=== PATIENT | female | born 1990 | race Caucasian/White ===

== ENCOUNTER → 2020-02-21 08:06 | Outpatient (BNVA) | payer OTHER, SELFPAY | PROVIDERS: PCP Pediatrics; Visit Provider Surgery | DX: Z76.89 Persons encountering health services in other specified circumstances (principal) ==

== ENCOUNTER 2023-06-22 12:21 | Emergency (ER) | payer OTHER, SELFPAY ==
--- NOTE | ~2023-06-22 | CT_ITS ---
EXAMINATION: CT head/brain wo IV con CLINICAL INFORMATION: Reason for Exam hypertension and headache COMPARISON: None. TECHNIQUE: Contiguous axial imaging was performed from the skull base to vertex without intravenous contrast. Sagittal and coronal reformatted images were obtained. This CT examination was performed using dose optimization techniques as appropriate, variously including the following: * Automated exposure control * Adjustment of mA and/or kV according to patient size (this includes techniques or standardized protocols for targeted exams where dose is matched to indication/reason for exam; i.e. extremities or head) Use of iterative reconstruction technique DLP: 699 mGy-cm FINDINGS: There is no evidence of acute intracranial hemorrhage. No mass-effect or ventricular shift is noted. No acute, territorial loss of allan-white differentiation. The ventricles and sulci are appropriate in size and configuration for the patient's stated age. No depressed calvarial fracture. The paranasal sinuses are well-aerated. The mastoid air cells are clear. CT/CT head/brain wo IV con IMPRESSION: No acute intracranial hemorrhage, mass effect, or midline shift.
[2023-06-22 13:14] VITALS: BP 162/114; PULSE 89; RESP 18; TEMP 36.9; O2SAT 99; BMI 54.9
--- NOTE | 2023-06-22 13:15 | ED_ITS ---
HPI - General Adult General Chief complaint: General Medical Stated complaint: high bp per weight management dr Time Seen by Provider: 06/22/23 15:20 Source: patient Mode of arrival: ambulatory Limitations: no limitations History of Present Illness HPI narrative: a 32-year-old female was referred from weight management clinic for elevated diastolic blood pressure. Patient with history of preeclampsia and gestational hypertension that was placed on antihypertension medication by her OBGYN the patient used for 2 minutes then ran out of the medication since she did not have a PCP, patient has blood pressure monitor at home that has been recording high blood pressure for the past few months, currently not on any antihypertensive medication, complains of intermittent headache for the past month, right arm tingling, intermittent chest tightness, in the ED patient reports no symptoms. Patient has first-time appointment with her PCP tomorrow. Related Data Previous Rx's ?Medication ?Instructions ?Recorded amlodipine 2.5 mg tablet 2.5 mg PO DAILY #10 tabs 06/22/23 Allergies Allergy/AdvReac Type Severity Reaction Status Date / Time No Known Allergies Allergy Verified 06/22/23 13:14 Review of Systems 2 Review of Systems: all other systems are reviewed and are negative Constitutional: Reports as per HPI and Reports no additional constitutional complaints Eyes: Reports as per HPI and Reports no additional eye complaints Reports system reviewed and no additional complaints, except as documented Cardiovascular: Reports as per HPI and Reports no additional cardiovascular complaints Respiratory: Reports as per HPI and Reports no additional respiratory complaints Gastrointestinal: Reports as per HPI and Reports no additional gastrointestinal complaints Genitourinary: Reports no additional female genitourinary complaints Musculoskeletal: Reports no additional musculoskeletal complaints Skin/Breast: Reports system reviewed and no additional complaints, except as docu Psychiatric: Reports no additional psychiatric complaints Endocrine: Reports no additional endocrine complaints Hematologic/Lymphatic: Reports no additional hematologic/lymphatic complaints Allergic/Immunologic: Reports no additional allergic/immunologic complaints Reports system reviewed and no additional complaints, except as documented and Reports Abnormal speech present PMFSH Social History Social History Advance Directives: No Advance Directives Information Provided: No Physical Exam ED Vital Signs: Vital Signs - 24 hr 06/22/23 13:14 06/22/23 15:35 Temperature 98.4 F 98.1 F Pulse Rate 89 77 Respiratory Rate 18 16 Blood Pressure 162/114 H 143/96 H Pulse Oximetry 99 98 Oxygen Delivery Method Room Air Room Air BMI result Body Mass Index 54.9 Vital signs have been reviewed and appear to be correct. Blood pressure elevated. Heart rate normal. Respiratory rate normal. Temperature normal. Oxygen saturation normal. Appearance: Alert. Oriented X3. No acute distress. Head: Normal external exam. Normocephalic. Atraumatic. No Farias signs noted. No raccoon eyes noted Eyes: PERRLA. EOMI. Conjunctiva and sclera normal. Eyelids normal. ENT: TM's Normal. Pharynx normal. Uvula midline. Moist mucous membranes. No trismus noted. No drooling noted. No muffled voice noted. Neck: Normal inspection. Neck supple. FROM. No adenopathy. Thyroid Normal. No meningeal signs. No neck mass noted. CVS: Normal heart rate and rhythm. Heart sound normal. No murmurs noted. Pulses normal throughout. Respiratory: No respiratory distress. Painless inspiration. Breath sounds normal. No wheezes/rales/rhonchi noted. Chest nontender. No accessory muscle usage noted or decreased air movement noted. Abdomen: Soft and nontender. Bowel sounds normal in all 4 quadrants. No distention noted. No organomegaly noted. No visible injury noted. Back: No CVA tenderness. Full range of motion noted. Skin: Skin warm and dry. Normal skin color. Normal skin turgor. No rashes/lesions/lacerations noted. Extremities: No lower extremity edema. Extremities exhibit normal range of motion. Extremities nontender. Neuro: Oriented X 3. Cranial nerve exam: II-XII are grossly intact No motor deficit. No sensory deficit. Reflexes normal. Course Course Course Narrative: RME- 32-year-old female presents for evaluation of high blood pressure from her weight management office. She endorses headache right arm tingling and chest tightness breath. On arrival to the ED her blood pressure is 162/114 in triage. Plan for labs, EKG Reevaluation(s) Reevaluation #1: 32-year-old female with diagnosed gestational hypertension with preeclampsia, patient also was recording high blood pressure at home with intermittent symptoms for high blood pressure, will have her 1st appointment with PCP tomorrow, discussed with the patient that will start on amlodipine 2.5 mg daily, to keep her appointment with PCP tomorrow. Time: 17:00 Medications Administered Discontinued Medications Generic Name Dose Route Start Last Admin Trade Name Opal PRN Reason Stop Dose Admin Amlodipine Besylate 2.5 mg 06/22/23 15:38 06/22/23 16:22 Amlodipine Besylate 2.5 Mg Tablet PO 06/22/23 15:39 2.5 mg ONCE ONE Administration Protocol Medical Decision Making Differential Diagnosis Differential Diagnoses: The differential diagnosis associated with the presentation includes ( Hypertensive urgency, hypertensive emergency, intracranial bleed, LV hypertrophy, ACS, electrolyte derangement, severe anemia.) Admission/Observation Consideration of admission/observation: Escalation of care including admission/observation considered Lab Data MDM Lab Attestation statement: I reviewed the patient's lab results. 06/22/23 14:35 06/22/23 14:35 Labs: Lab Results 06/22/23 Range/Units 14:35 WBC 8.1 (4.8-10.8) X10*3/uL RBC 5.40 (4.20-5.50) X10*6/uL Hgb 14.9 (12.0-16.0) g/dl Hct 44.7 (37.0-47.0) % MCV 82.8 (80.0-98.0) fL MCH 27.6 (27.0-33.0) pg MCHC 33.3 (31.0-35.0) g/dl RDW 13.1 (11.0-16.0) % Plt Count 326 (160-400) X10*3/uL MPV 9.2 L (9.4-12.3) fL Immature Gran % (Auto) 0.2 (0.0-0.4) % Neut % (Auto) 63.2 (45-73) % Lymph % (Auto) 29.2 (20-40) % Edgar % (Auto) 5.9 (2-11) % Eos % (Auto) 1.1 (0-4) % Baso % (Auto) 0.4 (0-2) % Lymph # (Auto) 2.4 (1.2-4.9) X10*3/uL Edgar # (Auto) 0.5 (0.1-1.2) X10*3/uL Eos # (Auto) 0.1 (0.0-0.4) X10*3/uL Baso # (Auto) 0.0 (0.0-0.2) X10*3/uL Abs Immat Gran (auto) 0.02 (0.00-0.03) X10*3/uL Absolute Neuts (auto) 5.1 (2.0-8.3) x10*3/uL Absolute Nucleated RBC 0.000 (0.0-0.012) X10*3/uL Nucleated RBC % (auto) 0.0 (0.0-0.2) /100WBC Sodium 140 (135-145) mmol/L Potassium 4.2 (3.3-5.1) mmol/L Chloride 108 (96-108) mmol/L Carbon Dioxide 23 (22-29) mmol/L Anion Gap 13 (12-20) BUN 9 (9-16) mg/dL Creatinine 0.70 (0.5-1.4) mg/dL Estim Creat Clear Calc 138.4 Estimated GFR > 60 Random Glucose 90 (60-115) mg/dL Calcium 9.7 (8.4-10.2) mg/dL Troponin I High Sens < 2.7 (<3.5-17.0) ng/L Independent Interpretation I performed an independent interpretation of an: EKG ( Normal sinus rhythm at 84 beats per minutes with sinus arrhythmia, diffuse T-wave inversion, normal intervals.) and CT Scan ( Head: No acute intra cranial pathology.) Radiology Impression Discussion of test interpretation with radiology: I have reviewed the radiologist's reading. (No acute intracranial hemorrhage, mass effect, or midline shift.) Chronic Conditions Patient?s care impacted by: Hypertension Discharge Plan Discharge Clinical Impression: Essential hypertension Patient Disposition: Home, Self-Care Instructions: Hypertension (ED) Additional Instructions: keep your appointment with PCP tomorrow. Keep monitoring and records for your blood pressure home and review with with your primary doctor. Seek immediate medical attention for severe headache, blurry vision, chest pain, shortness of breath, weakness. Prescriptions: New amlodipine 2.5 mg tablet 2.5 mg PO DAILY Qty: 10 0RF Print Language: Luxembourger
--- NOTE | 2023-06-22 13:16 | ECG_ITS ---
Test Reason : HTN Blood Pressure : / mmHG Vent. Rate : 084 BPM Atrial Rate : 084 BPM P-R Int : 126 ms QRS Dur : 086 ms QT Int : 370 ms P-R-T Axes : 050 -22 003 degrees QTc Int : 437 ms Normal sinus rhythm with sinus arrhythmia T wave abnormality, consider anterior ischemia Abnormal ECG No previous ECGs available Referred By: Chava Ross Electronically Signed By:BRITNI BARKER
--- OUTSIDE RECORDS SUMMARY | 2023-06-22 13:51 | XMS_ITS | Continuity of Care Document ---
Author Organization [facility] Pako Gutierres n's [facility] Address [address], [address] [place] [address]- Care Team Providers Care Special Investigator Name Role Phone Not on Staff, PCP Primary Care Physician Unavail able Encounter [facility] Date(s): 06/18/22 - 08/07/22 [facility] Pako Dangs [facility] [address] [place] [address]- Attending Physician: Sherry Quinones MD Referring Physician: Clarissa Wills CNM Allergies, Adverse Reactions, Alerts Substance Reaction Severity Status Other Environmental Allergy 1 Active 1seasonal allergies Immunizations Given and Recorded Vaccine Date Status Refusal Reason tetanus/diphtheria/pertussis, acel(Tdap) 05/13/22 Given tetanus/diphtheria/pertussis, acel(Tdap) 12/15/18 Given tetanus/diphtheria/pertussis, acel(Tdap) 06/02/13 Given influenza virus vaccine, inactivated 12/12/21 Oliver rded influenza virus vaccine, inactivated 05/21/21 Oliver rded influenza virus vaccine, inactivated 12/24/20 Oliver rded influenza virus vaccine, inactivated 1 12/13/19 Re corded influenza virus vaccine, inactivated 12/01/18 Give n influenza virus vaccine, inactivated 06/02/13 Give n influenza virus vaccine, inactivated 12/09/10 Give n influenza virus vaccine, inactivated 12/26/09 Give n influenza virus vaccine, inactivated 03/16/07 Give n SARS-CoV-2 mRNA ([id number]) vax 07/02/21 Recorded SARS-CoV-2 mRNA ([id number]) vax 04/29/21 Recorded Meningococcal Polysaccharide Vaccine 09/07/12 Give n influ virus vac, H1N1, live(oldterm) 2 02/07/09 Gi oralia Influenza Inactive (IM) (oldterm) 3 11/21/08 Given Human Papillomavirus Vaccine 4 11/21/08 Given Human Papillomavirus Vaccine 09/01/08 Given Human Papillomavirus Vaccine 08/10/07 Given Tet/Diphth/Acel, Pertussis (oldterm) 08/10/07 Give n Varicella Virus Vaccine 08/10/07 Given Varicella Virus Vaccine 5 04/07/98 Given Meningococcal Conjugate Vaccine 08/10/07 Given tetanus-diphtheria toxoids (Td) 6 01/27/01 Given Hepatitis B Vaccine (old term) 7 04/07/98 Given Hepatitis B Vaccine (old term) 8 09/06/95 Given Hepatitis B Vaccine (old term) 9 05/06/95 Given Poliovirus Vaccine, Inactivated 10 11/06/95 Given Poliovirus Vaccine, Inactivated 11 04/07/93 Given Poliovirus Vaccine, Inactivated 12 06/05/92 Given Poliovirus Vaccine, Inactivated 13 03/07/92 Given Diphth/Pertussis, Whl Cell/Tet(oldterm) 14 11/06/95 Given Diphth/Pertussis, Whl Cell/Tet(oldterm) 15 06/05/93 Given Diphth/Pertussis, Whl Cell/Tet(oldterm) 16 08/05/92 Given Diphth/Pertussis, Whl Cell/Tet(oldterm) 17 06/05/92 Given Diphth/Pertussis, Whl Cell/Tet(oldterm) 18 03/07/92 Given Measles/Mumps/Rubella Virus Vaccine 19 06/05/93 Gi oralia Measles/Mumps/Rubella Virus Vaccine 20 03/07/93 Gi oralia Haemophilus B Conj Vaccine (oldterm) 21 04/07/93 G iven Haemophilus B Conj Vaccine (oldterm) 22 08/05/92 G iven Haemophilus B Conj Vaccine (oldterm) 23 06/05/92 G iven Haemophilus B Conj Vaccine (oldterm) 24 03/07/92 G iven 1Result Comment: received at [facility] on [facility] 2Admin Note: VIS GIVEN 3Admin Note: VIS GIVEN 4Admin Note: VIS GIVEN 5Admin Note: JES 6Admin Note: TD 7Admin Note: HEP B 8Admin Note: HEP B 9Admin Note: HEP B 10Admin Note: IPV/OPV 11Admin Note: IPV/OPV 12Admin Note: IPV/OPV 13Admin Note: IPV/OPV 14Admin Note: DTP 15Admin Note: DTP 16Admin Note: DTP 17Admin Note: DTP 18Admin Note: DTP. unknown exact days all imm 19Admin Note: MMR 20Admin Note: MMR 21Admin Note: HIB 22Admin Note: HIB 23Admin Note: HIB 24Admin Note: HIB Medications ibuprofen 800 mg oral tablet 800 mg, 1, tablet, By Mouth, Every 8 hours, PRN, (4-6), may give 400mg per patient preference and re-dose with 400mg within 8 hours if needed. Patient should only receive a total of 800mg of Ibuprofen every 8 hours., # 40 tablet, Refills 0, Tot. Ref... Start Date: 07/11/22 Status: Ordered NIFEdipine 30 mg oral tablet, extended release 30 mg, 1, tablet, By Mouth, Daily, # 30 tablet, Refills 0, Tot. Refills 0, Maintenance, 07/11/22 10:28:00 EDT, Route to Pharmacy Electronically, [facility]/pharmacy #[id number], Partial fill upon patient request if the prescription is for a schedule II opioid drug... Start Date: 07/11/22 Status: Ordered Tylenol 325 mg oral capsule 2 capsule = 650 mg, By Mouth, Every 4 hours, PRN as needed for pain, # 120 capsule, 0 Refills, Maintenance, 07/11/22 10:24:00 EDT, Capsule, [facility]/pharmacy #[id number], Partial fill upon patient request if the prescription is for a schedule II opioid drug., 15... Start Date: 07/11/22 Status: Ordered Problem List Condition Confirmation Course Effective Dates Status Health St atus Informant Anxiety and depression 1 Confirmed Active Hx of migraines Confirmed Active Rh negative, (A negative) Confirmed Active Seasonal allergies Confirmed Active Severe obesity Confirmed Active Hypertension in , preeclampsia, severe, delivered Confirmed Active Susceptible to Varicella (non-immune), currently in third trimester Confirmed Active 1Hx of mental health services with medications (sertraline 100mg) during previous ). Pt reports at today's OBI visit she is no longer engaged with services. Pt made aware of [facility] services. Social History Social History Type Response Smoking Status Former smoker, quit more than 30 days ago entered on: 04/14/22 Sex Patient Care team information Care Team Personnel Name: Not on Staff, PCP Position: S Physician (General Medicine) Member Role: PCP Care Team Related Persons Name: RACHEAL TA Address: home [address] [address] Name: CRISTAL VICENTE Address: [id number] Address: [address] [place] [address] [place] Name: GUILLAUME LYN Address: [id number] Address: home [address] [place] [address] [place] Name: ALISSA CARDOSO Address: home [address] [place] [address]
--- OUTSIDE RECORDS SUMMARY | 2023-06-22 13:51 | XMS_ITS | Continuity of Care Document ---
Author Organization [facility] Address [address] [place] [address]- Care Team Providers Care Fmd Teacher Name Role Phone Not on Staff, PCP Primary Care Physician Unavail able Encounter [facility] Date(s): 05/29/22 - 08/14/22 [facility] [address] [place] [address]- Attending Physician: Not on Staff, Attending MD Admitting Physician: Cecilia CARDOZO, Marcy Almendarez Referring Physician: Jarvis CAMARILLO SHIP WASHER, Sy Alonzo Allergies, Adverse Reactions, Alerts Substance Reaction Severity [...] vaccine, inactivated 03/16/07 Give n SARS-CoV-2 mRNA ([id number]) vax 07/02/21 Recorded SARS-CoV-2 mRNA ([id number]-phql-[id number]) vax 04/29/21 Recorded Meningococcal Polysaccharide Vaccine 09/07/12 [...] 03/07/92 G iven 1Result Comment: received at [facility] on [facility] 2Admin Note: VIS GIVEN 3Admin Note: [...] 07/11/22 10:28:00 EDT, Route to Pharmacy Electronically, [facility]/pharmacy #[id number], Partial fill upon patient request if the prescription is for a schedule II opioid drug... Start Date: 07/11/22 Status: Ordered Tylenol 325 mg oral capsule 2 capsule = 650 mg, By Mouth, Every 4 hours, PRN as needed for pain, # 120 capsule, 0 Refills, Maintenance, 07/11/22 10:24:00 EDT, Capsule, [facility]/pharmacy #[id number], Partial fill upon patient request [...] engaged with services. Pt made aware of [facility] services. Social History Social History Type Response Smoking Status Former smoker, quit more than 30 days ago entered on: 04/14/22 Sex Patient Care team information Care Team Personnel Name: Not on Staff, PCP Position: S Physician (General Medicine) Member Role: PCP Care Team Related Persons Name: CELYRACHEAL Escalera Address: [address] [address] Name: CRISTAL VICENTE Address: [id number] Address: [address] [place] [address] [place] Name: GUILLAUME LYN Address: [id number] Address: home [address] [place] [address] [place] Name: ALISSA CARDOSO Address: [address] [place] [address]
--- OUTSIDE RECORDS SUMMARY | 2023-06-22 13:51 | XMS_ITS | Continuity of Care Document ---
Author Organization [facility] Address [address] [place] [address]- Care Team Providers Care Scorer Helper Name Role Phone Rillito-Geoffrey CARDOZO, Mara Primary Care Physicia n Encounter [facility] Date(s): 11/11/19 - 12/16/[address] [address]- [facility] Attending Physician: Marily Lopez CNM Admitting Physician: Marily oLpez CNM Referring Physician: Marily Lopez CNM Allergies, Adverse Reactions, Alerts Substance Reaction Severity Status NKA Active Immunizations Given and Recorded Vaccine Date Status Refusal Reason tetanus/diphtheria/pertussis, acel(Tdap) 12/15/18 Given tetanus/diphtheria/pertussis, acel(Tdap) 06/02/13 Given influenza virus vaccine, inactivated 12/01/18 Give n influenza virus vaccine, inactivated 06/02/13 Give n influenza virus vaccine, inactivated 12/09/10 Give n influenza virus vaccine, inactivated 12/26/09 Give n influenza virus vaccine, inactivated 03/16/07 Give n Meningococcal Polysaccharide Vaccine 09/07/12 Give n influ virus vac, H1N1, live(oldterm) 1 02/07/09 Gi oralia Influenza Inactive (IM) (oldterm) 2 11/21/08 Given Human Papillomavirus Vaccine 3 11/21/08 Given Human Papillomavirus Vaccine 09/01/08 Given Human Papillomavirus Vaccine 08/10/07 Given Tet/Diphth/Acel, Pertussis (oldterm) 08/10/07 Give n Varicella Virus Vaccine 08/10/07 Given Varicella Virus Vaccine 4 04/07/98 Given Meningococcal Conjugate Vaccine 08/10/07 Given tetanus-diphtheria toxoids (Td) 5 01/27/01 Given Hepatitis B Vaccine (old term) 6 04/07/98 Given Hepatitis B Vaccine (old term) 7 09/06/95 Given Hepatitis B Vaccine (old term) 8 05/06/95 Given Poliovirus Vaccine, Inactivated 9 11/06/95 Given Poliovirus Vaccine, Inactivated 10 04/07/93 Given Poliovirus Vaccine, Inactivated 11 06/05/92 Given Poliovirus Vaccine, Inactivated 12 03/07/92 Given Diphth/Pertussis, Whl Cell/Tet(oldterm) 13 11/06/95 Given Diphth/Pertussis, Whl Cell/Tet(oldterm) 14 06/05/93 Given Diphth/Pertussis, Whl Cell/Tet(oldterm) 15 08/05/92 Given Diphth/Pertussis, Whl Cell/Tet(oldterm) 16 06/05/92 Given Diphth/Pertussis, Whl Cell/Tet(oldterm) 17 03/07/92 Given Measles/Mumps/Rubella Virus Vaccine 18 06/05/93 Gi oralia Measles/Mumps/Rubella Virus Vaccine 19 03/07/93 Gi oralia Haemophilus B Conj Vaccine (oldterm) 20 04/07/93 G iven Haemophilus B Conj Vaccine (oldterm) 21 08/05/92 G iven Haemophilus B Conj Vaccine (oldterm) 22 06/05/92 G iven Haemophilus B Conj Vaccine (oldterm) 23 03/07/92 G iven 1Admin Note: VIS GIVEN 2Admin Note: VIS GIVEN 3Admin Note: VIS GIVEN 4Admin Note: JES 5Admin Note: TD 6Admin Note: HEP B 7Admin Note: HEP B 8Admin Note: HEP B 9Admin Note: IPV/OPV 10Admin Note: IPV/OPV 11Admin Note: IPV/OPV 12Admin Note: IPV/OPV 13Admin Note: DTP 14Admin Note: DTP 15Admin Note: DTP 16Admin Note: DTP 17Admin Note: DTP. unknown exact days all imm 18Admin Note: MMR 19Admin Note: MMR 20Admin Note: HIB 21Admin Note: HIB 22Admin Note: HIB 23Admin Note: HIB Medications fluconazole 150 mg oral tablet 1 tablet = 150 mg, By Mouth, Once, Acute, # 1 tablet, 0 Refills, Soft Stop, 11/11/19 15:11:00 EDT, [id number], 150, cm, 11/09/19 19:11:00 EDT, Height, 106, kg, 02/27/19 10:58:00 EST, Dry Weight Start Date: 11/11/19 Status: Ordered Multivitamins with Folic Acid 1 mg oral capsule See Instructions, TAKE ONE DAILY BY MOUTH, # 100 tablet, 2 Refills, Maintenance, 10/07/18 11:05:35 EDT, TAKE ONE DAILY BY MOUTH Start Date: 10/07/18 Status: Ordered Problem List Condition Effective Dates Status Health Status Inform ant Anxiety and depression(Confirmed) 1 Active Body mass index 30+ - obesity(Confirmed) 2 02/27/19 Active Constipation(Confirmed) Active Hx of migraines(Confirmed) Active History of hemorrhage(Confirmed) Active History of gestational hypertension(Confirmed) Active Morbid obesity(Confirmed) Active Rh negative, (A negative)(Confirmed) Active Seasonal allergies(Confirmed) Active Susceptible to Varicella (no n-immune), currently in third trimester(Confirmed) Active 1Hx of mental health services with medications (sertraline 100mg) during previous ). Pt reports at today's OBI visit she is no longer engaged with services. Pt made aware of [facility] services. 2Problem added by Discern Expert Social History Social History Type Response Smoking Status Former smoker, quit more than 30 days ago entered on: 08/10/18 Sex Female
--- OUTSIDE RECORDS SUMMARY | 2023-06-22 13:51 | XMS_ITS | Continuity of Care Document ---
Author Organization [facility] Address [address] [place] [address]- Care Team Providers Care Dental Prosthetist Name Role Phone Brooklyn-Geoffrey CARDOZO, Mara Primary Care Physicia n Encounter [facility] Date(s): 12/14/18 - 04/13/[address] [address]- [facility] Attending Physician: Not on Staff, Attending MD Allergies, Adverse Reactions, Alerts Substance Reaction Severity [...] 22Admin Note: HIB 23Admin Note: HIB Medications acetaminophen 325 mg oral tablet 650 mg, By Mouth, Every 4 hours, PRN, (1-3), may give 325mg per patient preference and re-dose [id number] within 4 hours, if needed. Patient should only receive a total of 650mg of Acetaminophen every 4 hours., Refills 0, Maintenance, Pain , Mild, 1... Start Date: 03/01/19 Status: Ordered ibuprofen 800 mg oral tablet 800 mg, 1, tablet, By Mouth, Every 8 hours, PRN, (4-6), may give 400mg per patient preference and re-dose with 400mg within 8 hours if needed. Patient should only receive a total of 800mg of Ibuprofen every 8 hours., Refills 0, Maintenance, Pain , M... Start Date: 03/01/19 Status: Ordered Pepcid 20 mg oral tablet See Instructions, 1 tablet By Mouth 2 times a day as needed for relfux, # 60 tablet, 2 Refills, Maintenance, 12/15/18 15:16:41 EDT, Tablet Start Date: 12/15/18 Status: Ordered Multivitamins with Folic Acid 1 mg oral capsule See Instructions, TAKE ONE DAILY BY MOUTH, # 100 tablet, 2 Refills, Maintenance, 10/07/18 11:05:35 EDT, TAKE ONE DAILY BY MOUTH Start Date: 10/07/18 Status: Ordered Problem List Condition Effective Dates Status Health Status Inform ant Anxiety and depression(Confirmed) 1 Active Body mass index 30+ - obesity(Confirmed) 2 02/27/19 Active Constipation(Confirmed) Active 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
--- OUTSIDE RECORDS SUMMARY | 2023-06-22 13:51 | XMS_ITS | Continuity of Care Document ---
Author Organization [facility] Address [address] [place] [address]- Care Team Providers Care Weight Loss Consultant Name Role Phone Not on Staff, PCP Primary Care Physician Unavail able [facility] and [address] [address] Allergies, Adverse Reactions, Alerts Substance Reaction Severity [...] vaccine, inactivated 03/16/07 Give n SARS-CoV-2 mRNA (rzligwn-ofor-clyiy) vax 07/02/21 Recorded SARS-CoV-2 mRNA (axngyry-nour-mbnvl) vax 04/29/21 Recorded Meningococcal Polysaccharide Vaccine 09/07/12 [...] 03/07/92 G iven 1Result Comment: received at [facility] on [facility] 2Admin Note: VIS GIVEN 3Admin Note: [...] 07/11/22 10:28:00 EDT, Route to Pharmacy Electronically, [facility]/pharmacy #[id number], Partial fill upon patient request if the prescription is for a schedule II opioid drug... Start Date: 07/11/22 Status: Ordered Tylenol 325 mg oral capsule 2 capsule = 650 mg, By Mouth, Every 4 hours, PRN as needed for pain, # 120 capsule, 0 Refills, Maintenance, 07/11/22 10:24:00 EDT, Capsule, [facility]/pharmacy #[id number], Partial fill upon patient request [...] services. Pt made aware of [facility] services. Social History Social History Type Response Smoking Status Former smoker, quit more than 30 days ago entered on: 04/14/22 Sex Patient Care team information Care Team Personnel Name: Not on Staff, PCP Position: [facility] Physician (General Medicine) Member Role: PCP Care Team Related Persons Name: RACHEAL TA Address: home [address] [address] Name: CRISTAL VICENTE Address: [address] Address: home [address] [place] [address] [place] Name: GUILLAUME LYN Address: [address] Address: home [address] [place] [address] [place] Name: ALISSA CARDOSO Address: home [address] [place] [address]
--- OUTSIDE RECORDS SUMMARY | 2023-06-22 13:51 | XMS_ITS | Continuity of Care Document ---
Author Organization [facility] Address [address] [place] [address]- Care Team Providers Care Fire Battalion Chief Name Role Phone [place]-Geoffrey CARDOZO, Mara Primary Care Physicia n [facility]): 06/[facility]/20 - 07/05/[address] [address]- Attending Physician: Isaías Paredes Admitting Physician: Isaías Paredes Referring Physician: AdmtrIsaías Allergies, Adverse Reactions, Alerts Substance Reaction Severity Status NKA Active Immunizations Given and Recorded Vaccine Date Status Refusal Reason influenza virus vaccine, inactivated 1 12/13/19 Re corded influenza virus vaccine, inactivated 12/01/18 Give n influenza virus vaccine, inactivated 06/02/13 Give n influenza virus vaccine, inactivated 12/09/10 Give n influenza virus vaccine, inactivated 12/26/09 Give n influenza virus vaccine, inactivated 03/16/07 Give n tetanus/diphtheria/pertussis, acel(Tdap) 12/15/18 Given tetanus/diphtheria/pertussis, acel(Tdap) 06/02/13 Given Meningococcal Polysaccharide Vaccine 09/07/12 Give n influ [...] 03/07/92 G iven 1Result Comment: received at [facility] in [facility] 2Admin Note: VIS GIVEN 3Admin Note: [...] 23Admin Note: HIB 24Admin Note: HIB Medications fluconazole 150 mg oral [...] with services. Pt made aware of [facility] services. 2Problem added by Discern Expert Social History Social History Type Response Smoking Status Former smoker, quit more than 30 days ago entered on: 08/10/18 Sex Female
--- OUTSIDE RECORDS SUMMARY | 2023-06-22 13:52 | XMS_ITS | Continuity of Care Document ---
Author Organization [facility] Address [address] [address]- Care Team Providers Care Formulation Chemist Name Role Phone Not on Staff, PCP Primary Care Physician Unavail able [facility]s): 03/28/22 - 04/27/22 [facility] [address] [address]- Allergies, Adverse Reactions, Alerts Substance Reaction Severity [...] 03/07/92 G iven 1Result Comment: received at [facility] on [facility] in [facility] 2Admin Note: VIS GIVEN 3Admin Note: VIS [...] 23Admin Note: HIB 24Admin Note: HIB Medications aspirin 81 mg oral tablet, chewable 162 mg, 2, tablet, By Mouth, Daily, # 180 tablet, Refills 2, Tot. Refills 2, Maintenance, 04/16/22 13:05:00 EST, Route to Pharmacy Electronically, [facility]/pharmacy #[id number], Partial fill upon patient request if the prescription is for a schedule II opioid . Start Date: 04/16/22 Status: Ordered PNV By Mouth, Daily, 0 Refills, Maintenance, 04/14/22 15:27:00 EST, Partial fill upon patient request if the prescription is for a schedule II opioid drug. Start Date: 04/14/22 Status: Ordered Multivitamins with Folic Acid 1 mg oral capsule 1 capsule = 1 mg, By Mouth, Daily, # 90 tablet, 4 Refills, Maintenance, 04/16/22 13:06:00 EST, [facility]/pharmacy #[id number], Partial fill upon patient request if the prescription is for a schedule II opioid drug., 1 capsule By Mouth Daily, 150, cm, 04/16/22 12:... Start Date: 04/16/22 Status: Ordered Problem List Condition Confirmation Course Effective Dates Status Health St atus Informant Anxiety and depression 1 Confirmed Active Body mass index 30+ - obesity 2 Confirmed 02/27/19 Active BMI 40.0-44.9, adult Confirmed Active Constipation Confirmed Active Hx of migraines Confirmed Active History of hemorrhage Confirmed Active History of gestational hypertension Confirmed Active Morbid obesity Confirmed Active Rh negative, (A negative) Confirmed Active Seasonal allergies Confirmed Active Susceptible to Varicella (non-immune), currently in third trimester Confirmed Active 1Hx of mental health services with medications (sertraline 100mg) during previous ). Pt reports at today's OBI visit she is no longer engaged with services. Pt made aware of [facility] services. 2Problem added by Discern Expert Social History Social History Type Response Smoking Status Former smoker, quit more than 30 days ago entered on: 04/14/22 Sex Female Patient Care team information Care Team Personnel Name: Not on Staff, PCP Position: [facility] Physician (General Medicine) Member Role: PCP Care Team Related Persons Name: RACHEAL TA Address: home [address] [address] Name: CRISTAL VICENTE Address: [address] Address: [address] [place] [address] Name: JUAN JHAVERI Address: home [address] [place] [address]
--- OUTSIDE RECORDS SUMMARY | 2023-06-22 13:52 | XMS_ITS | Continuity of Care Document ---
Author Organization [facility] Address [address] [place] [address]- Care Team Providers Care Human Capital Consultant Name Role Phone [place]-Geoffrey CARDOZO, Mara Primary Care Physicia n [facility]s): 11/09/19 - 12/09/[address] [address]- [facility] Attending Physician: Isaías Paredes Admitting Physician: Isaías [...] engaged with services. Pt made aware of [facility] services. 2Problem added by Discern Expert Social History Social History Type Response Smoking Status Former smoker, quit more than 30 days ago entered on: 08/10/18 Sex Female
--- OUTSIDE RECORDS SUMMARY | 2023-06-22 13:52 | XMS_ITS | Continuity of Care Document ---
Author Organization [facility] Address [address] [place] [address]- Care Team Providers Care Speech And Hearing Director Name Role Phone [place]-Geoffrey CARDOZO, Mara Primary Care Physicia n [facility] Date(s): 02/22/19 - 03/30/[address] [address]- [facility] Attending Physician: Mojgan Hirsch MD Admitting Physician: Mojgan Hirsch MD Allergies, Adverse Reactions, Alerts Substance Reaction [...] Vaccine 4 04/07/98 Given Meningococcal Conjugate Vaccine 6/3/08 Given tetanus-diphtheria toxoids (Td) 5 01/27/01 Given [...] give 325mg per patient preference and re-dose [id number] within 4 hours, if needed. Patient should [...] engaged with services. Pt made aware of [facility] services. 2Problem added by Discern Expert Social History Social History Type Response Smoking Status Former smoker, quit more than 30 days ago entered on: 08/10/18 Sex
--- OUTSIDE RECORDS SUMMARY | 2023-06-22 13:52 | XMS_ITS | Continuity of Care Document ---
Author Organization [facility] Address [address] [facility], [address] [place] [address]- Care Team Providers Care Adapted Physical Education Teacher Name Role Phone Not on Staff, PCP Primary Care Physician Unavail able Encounter [facility] Date(s): 06/18/22 - 07/24/22 [facility] [address] [facility] [place] [address]- Attending Physician: Sherry Quinones MD Referring Physician: [...] vaccine, inactivated 03/16/07 Give n SARS-CoV-2 mRNA (khskagm-vcob-vdccz) vax 07/02/21 Recorded SARS-CoV-2 mRNA (pegohwm-knxe-pakgq) vax 04/29/21 Recorded Meningococcal Polysaccharide Vaccine 09/07/12 [...] 03/07/92 G iven 1Result Comment: received at [facility] on [facility] 2Admin Note: VIS GIVEN 3Admin Note: [...] 07/11/22 10:28:00 EDT, Route to Pharmacy Electronically, [facility]/pharmacy #[id number], Partial fill upon patient request if the prescription is for a schedule II opioid drug... Start Date: 07/11/22 Status: Ordered Tylenol 325 mg oral capsule 2 capsule = 650 mg, By Mouth, Every 4 hours, PRN as needed for pain, # 120 capsule, 0 Refills, Maintenance, 07/11/22 10:24:00 EDT, Capsule, [facility]/pharmacy #[id number], Partial fill upon patient request if the prescription is for a schedule II opioid drug., 15... Start Date: 07/11/22 Status: Ordered Problem List Condition Confirmation Course Effective Dates Status Health St atus Informant Anxiety and depression 1 Confirmed Active Hx of migraines Confirmed Active History of hemorrhage Confirmed Active History of gestational hypertension Confirmed Active Encounter for induction of labor Confirmed Active Gestational hypertension Confirmed Active Rh negative, (A negative) Confirmed Active Seasonal allergies Confirmed Active Severe obesity Confirmed Active Severe preeclampsia Confirmed Active Susceptible to Varicella (non-immune), currently in third trimester Confirmed Active 1Hx of mental health services with medications (sertraline 100mg) during previous ). Pt reports at today's OBI visit she is no longer engaged with services. Pt made aware of [facility] services. Social History Social History Type Response Smoking Status Former smoker, quit more than 30 days ago entered on: 04/14/22 Sex Patient Care team information Care Team Personnel Name: Not on Staff, PCP Position: S Physician (General Medicine) Member Role: PCP Care Team Related Persons Name: CELYRACHEAL Escalera Address: home [address] [address] Name: CRISTAL VICENTE Address: [address] Address: [address] [place] [address] [place] Name: GUILLAUME LYN Address: [address] Address: home [address] [place] [address] [place] Name: ALISSA CARDOSO Address: home [address] [place] [address]
--- OUTSIDE RECORDS SUMMARY | 2023-06-22 13:52 | XMS_ITS | Continuity of Care Document ---
Author Organization [facility] Address [address] [place] [address]- Care Team Providers Care Green Chain Puller Name Role Phone [place]-Geoffrey CARDOZO, Mara Primary Care Physicia n [facility]s): 05/22/20 - 06/21/[address] [address]- Allergies, Adverse Reactions, Alerts Substance Reaction Severity [...] 03/07/92 G iven 1Result Comment: received at [facility] in [facility] 2Admin Note: VIS GIVEN 3Admin [...] engaged with services. Pt made aware of [facility] services. 2Problem added by Discern Expert Social History Social History Type Response Smoking Status Former smoker, quit more than 30 days ago entered on: 08/10/18 Sex Female
--- OUTSIDE RECORDS SUMMARY | 2023-06-22 13:52 | XMS_ITS | Continuity of Care Document ---
Author Organization [facility] Address [address] [address]- Care Team Providers Care Paper Reeler Name Role Phone Not on Staff, PCP Primary Care Physician Unavail able [facility]): 05[facility]13/22 - 06/25/22 [facility] [address] [address] Attending Physician: Not on Staff, Attending MD Referring Physician: Marj Cisse CNM Allergies, Adverse Reactions, Alerts Substance Reaction [...] vaccine, inactivated 03/16/07 Give n SARS-CoV-2 mRNA (rmwhcsm-gkgp-bvtzl) vax 07/02/21 Recorded SARS-CoV-2 mRNA (eryvlci-qfdy-ucugf) vax 04/29/21 Recorded Meningococcal Polysaccharide Vaccine 09/07/12 [...] 03/07/92 G iven 1Result Comment: received at [facility] on [facility] 2Admin Note: VIS GIVEN 3Admin Note: VIS [...] 23Admin Note: HIB 24Admin Note: HIB Medications amoxicillin 500 mg oral tablet 1 tablet = 500 mg, By Mouth, 3 times a day, # 21 tablet, 0 Refills, Maintenance, 05/28/22 22:19:00 EDT, Tablet, Partial fill upon patient request if the prescription is for a schedule II opioid drug. Start Date: 05/28/22 Stop Date: 06/04/22 Status: Ordered aspirin 81 mg oral tablet, chewable 162 mg, 2, tablet, By Mouth, Daily, # 180 tablet, Refills 2, Tot. Refills 2, Maintenance, 04/16/22 13:05:00 EST, Route to Pharmacy Electronically, [facility]/pharmacy #[id number], Partial fill upon patient request if the prescription is for a schedule II opioid dr... Start Date: 04/16/22 Status: Ordered Multivitamins with Folic Acid 1 mg oral capsule 1 capsule = 1 mg, By Mouth, Daily, # 90 capsule, 6 Refills, Maintenance, 05/05/22 14:24:00 EST, [facility]acy [facility][id number], Partial fill upon patient request if the prescription is for a schedule II opioid drug., 1 capsule By Mouth Daily, 150, cm, 04/16/22 12... Start Date: 05/05/22 Status: Ordered Tylenol 325 mg oral capsule 2 capsule = 650 mg, By Mouth, Every 4 hours, PRN as needed for pain, # 90 capsule, 0 Refills, Maintenance, 05/28/22 22:19:00 EDT, Capsule, Partial fill upon patient request if the prescription is fora schedule II opioid drug. Start Date: 05/28/22 Status: Ordered Vitaspire oral tablet 1 tablet, By Mouth, Daily, # 90 tablet, 0 Refills, Maintenance, 06/11/22 14:50:00 EDT, Tablet, [facility]/pharmacy #[id number], Partial fill upon patient request if the prescription is for a schedule II opioid drug., 1 tablet By Mouth Daily, 150, cm, 06/11/22 14:3... Start Date: 06/11/22 Status: Ordered Problem List Condition Confirmation Course [...] allergies Confirmed Active Severe obesity Confirmed Active Susceptible to Varicella (non-immune), currently [...] Personnel Name: Not on Staff, PCP Position: [facility] Physician (General Medicine) Member Role: PCP Care Team Related Persons Name: RACHEAL TA Address: home [address] [facility] [address] [place] [address] Name: CRISTAL VICENTE Address: [address] Address: [address] [place] [address] Name: ALISSA CARDOSO Address: home [address] [place] [address]
--- OUTSIDE RECORDS SUMMARY | 2023-06-22 13:52 | XMS_ITS | Continuity of Care Document ---
Author Organization [facility] Address [address] [place] [address]- Care Team Providers Care Project Facilitator Name Role Phone Not on Staff, PCP Primary Care Physician Unavail able [facility]): 07/17/22 - 08/17/[facility] and [address] [address]- Attending Physician: Not on Staff, Attending MD Referring Physician: Jarvis CAMARILLO TUBE DRAWING SUPERVISOR, Sy Alonzo Allergies, Adverse Reactions, Alerts Substance [...] vaccine, inactivated 03/16/07 Give n SARS-CoV-2 mRNA (betpmyl-sgpv-nlbgn) vax 07/02/21 Recorded SARS-CoV-2 mRNA (fjttucn-gwtb-tprgb) vax 04/29/21 Recorded Meningococcal Polysaccharide Vaccine 09/07/12 [...] G iven 1Result Comment: received at [facility] on [facility] 2Admin Note: VIS GIVEN 3Admin [...] 10:28:00 EDT, Route to Pharmacy Electronically, [facility]/pharmacy #[id number], Partial fill upon patient request if the prescription is for a schedule II opioid drug... Start Date: 07/11/22 Status: Ordered Tylenol 325 mg oral capsule 2 capsule = 650 mg, By Mouth, Every 4 hours, PRN as needed for pain, # 120 capsule, 0 Refills, Maintenance, 07/11/22 10:24:00 EDT, Capsule, [id number], Partial fill upon patient request if [...] engaged with services. Pt made aware of [facility] services. Social History Social History Type Response Smoking Status Former smoker, quit more than 30 days ago entered on: 04/14/22 Sex Patient Care team information Care Team Personnel Name: Not on Staff, PCP Position: S Physician (General Medicine) Member Role: PCP Care Team Related Persons Name: CELYRACHEAL Escalera Address: home [address] [address] Name: CRISTAL VICENTE Address: [address] Address: [address] [place] [address] [place] Name: GUILLAUME LYN Address: [address] Address: home [address] [place] [address] [place] Name: ALISSA CARDOSO Address: home [address] [place] [address]
--- OUTSIDE RECORDS SUMMARY | 2023-06-22 13:52 | XMS_ITS | Continuity of Care Document ---
Author Organization [facility] Pako Gutierres n[facility] Address [address] [facility], [address], [place] [address]- Care Team Providers Care Furniture Delivery Driver Name Role Phone Not on Staff, PCP Primary Care Physician Unavail able [facility]s): 06/04/22 - 06/11/22 [facility] Pako D[facility] [address] [facility], [address] [place] [address]- Attending Physician: Marj Cisse CNM Allergies, Adverse Reactions, [...] vaccine, inactivated 03/16/07 Give n SARS-CoV-2 mRNA (qkdnatc-bekh-dvdtu) vax 07/02/21 Recorded SARS-CoV-2 mRNA (lkujhbt-tcng-ftbjr) vax 04/29/21 Recorded Meningococcal Polysaccharide Vaccine 09/07/12 [...] 03/07/92 G iven 1Result Comment: received at [facility] on [facility] 2Admin Note: VIS GIVEN 3Admin Note: VIS [...] 04/16/22 13:05:00 EST, Route to Pharmacy Electronically, [facility]/pharmacy #[id number], Partial fill upon patient [...] 0 Refills, Maintenance, 06/11/22 14:50:00 EDT, Tablet, [id number], Partial fill upon patient request if [...] engaged with services. Pt made aware of [facility] services. 2Problem added by Discern Expert Social History Social History Type Response Smoking Status Former smoker, quit more than 30 days ago entered on: 04/14/22 Sex Female [place] Unspecified body region * Event Display: PDC Other Ultrasound * Event Display: PDC Other Ultrasound Authored Date: [id number] OBSTETRICS REPORT PATIENT INFO: CMRN: [id number] BMRN: [id number] : [birth year] (31 yrs)(F) Name: ADRIANA LYN Visit Date: 06/04/2022 02:41 pm PERFORMED BY: Performed By: Deja Barber RDMS Attending: Leticia Ochoa MD Referred By: BRANDON Cisse CNM Location: [address] INDICATIONS: History of gestational hypertension Z87.59 M - BMI O99.21_ E66.01 EVALUATION: Num Of Fetuses: 1 Heart Rate(bpm): 135 Cardiac Activity: Present Presentation: Cephalic Placenta: Anterior Amniotic Fluid VIKASH FV: Within normal limits VIKASH Sum(cm) Largest Pocket(cm) 13 3.9 RLQ(cm) 9 Comment: The anatomy was not requested so it was not evaluated today. BIOMETRY: BPD: 80 mm G.Age: 32w 1d 36 % HC: 299.4 mm G.Age: 33w 1d 36 % AC: 290.9 mm G.Age: 33w 1d 73 % FL: 59.8 mm G.Age: 31w 1d 12 % CI: 72.27 % 70 - 86 FL/HC: 20.0 % 19.1 - 21.3 HC/AC: 1.03 0.96 - 1.17 FL/BPD: 74.8 % 71 - 87 FL/AC: 20.6 % 20 - 24 Est. FW: 1975 gm 4 lb 6 oz 44 % GESTATIONAL AGE: LMP: 32w 2d Date: 10/21/21 RIKY: 07/28/22 U/S Today: 32w 3d RIKY: 07/27/22 Best: 32w 2d Det. By: LMP (10/21/21) RIKY: 07/28/22 CERVIX UTERUS ADNEXA: Cervix Not well seen COMMENTS: The estimated weight is within normal limits. Leticia Ochoa MD Electronically Signed Final Report 06/04/2022 02:53 pm * Event Display: PDC Other Ultrasound Authored Date: [id number] Please click on pdf link to open report Patient Care team information Care Team Personnel Name: Not on Staff, PCP Position: [facility] Physician (General Medicine) Member Role: PCP Care Team Related Persons Name: RACHEAL TA Address: [address] [address] Name: CRISTAL VICENTE Address: [address] Address: [address] [place] [address] Name: ALISSA CARDOSO Address: [address] [place] [address]
--- OUTSIDE RECORDS SUMMARY | 2023-06-22 13:52 | XMS_ITS | Continuity of Care Document ---
Author Organization [facility] Address [address] [place] [address]- Care Team Providers Care Wink Cutter Operator Name Role Phone Not on Staff, PCP Primary Care Physician Unavail able [facility]s): 05/26/22 - 06/25/[address] [address] Allergies, Adverse Reactions, Alerts Substance Reaction Severity [...] vaccine, inactivated 03/16/07 Give n SARS-CoV-2 mRNA (nspngpk-lefk-wkhfd) vax 07/02/21 Recorded SARS-CoV-2 mRNA (yqjvcnh-pgfs-klmae) vax 04/29/21 Recorded Meningococcal Polysaccharide Vaccine 09/07/12 [...] 03/07/92 G iven 1Result Comment: received at [facility] on [facility] 2Admin Note: VIS GIVEN 3Admin Note: VIS [...] 04/16/22 13:05:00 EST, Route to Pharmacy Electronically, [facility]/pharmacy #[id number], Partial fill upon patient request if the prescription is for a schedule II opioid drRain.. Start Date: 04/16/22 Status: Ordered Multivitamins with Folic Acid 1 mg oral capsule 1 capsule = 1 mg, By Mouth, Daily, # 90 capsule, 6 Refills, Maintenance, 05/05/22 14:24:00 EST, [facility]/pharmacy #[id number], Partial fill upon patient request [...] 0 Refills, Maintenance, 06/11/22 14:50:00 EDT, Tablet, [facility]/pharmacy #[id number], Partial fill upon patient request [...] with services. Pt made aware of [facility] services. 2Problem added by Discern Expert Social History Social History Type Response Smoking Status Former smoker, quit more than 30 days ago entered on: 04/14/22 Sex Female Patient Care team information Care Team Personnel Name: Not on Staff, PCP Position: [facility] Physician (General Medicine) Member Role: PCP Care Team Related Persons Name: RACHEAL TA Address: [address] [address] Name: CRISTAL VICENTE Address: [address] Address: [address] [place] [address] Name: ALISSA CARDOSO Address: [address] [place] [address]
--- OUTSIDE RECORDS SUMMARY | 2023-06-22 13:52 | XMS_ITS | Continuity of Care Document ---
Author Organization [facility] a [facility] Address [address] [place] [id number]- Care Team Providers Care Land Conservation Specialist Name Role Phone Not on Staff, PCP Primary Care Physician Unavail able [facility]): [facility] [address] [place] [id number]- Attending Physician: Not on Staff, Attending MD Admitting Physician: Cecilia CARDOZO, Marcy Almendarez Referring Physician: Jarvis CAMARILLO SANITATION WORKER, Sy Alonzo Allergies, Adverse Reactions, Alerts Substance [...] vaccine, inactivated 03/16/07 Give n SARS-CoV-2 mRNA ([id number]-cmny-ttpiq) vax 07/02/21 Recorded SARS-CoV-2 mRNA (mwbdbuk-aqep-ozair) vax 04/29/21 Recorded Meningococcal Polysaccharide Vaccine 09/07/12 [...] 03/07/92 G iven 1Result Comment: received at [facility] on [facility] 2Admin Note: VIS GIVEN 3Admin Note: [...] 07/11/22 10:28:00 EDT, Route to Pharmacy Electronically, [facility]/pharmacy #[id number], Partial fill upon patient request if the prescription is for a schedule II opioid drug... Start Date: 07/11/22 Status: Ordered Tylenol 325 mg oral capsule 2 capsule = 650 mg, By Mouth, Every 4 hours, PRN as needed for pain, # 120 capsule, 0 Refills, Maintenance, 07/11/22 10:24:00 EDT, Capsule, [facility]/pharmacy #[id number], Partial fill upon patient [...] engaged with services. Pt made aware of [facility] services. Social History Social History Type Response Smoking Status Former smoker, quit more than 30 days ago entered on: 04/14/22 Sex Patient Care team information Care Team Personnel Name: Not on Staff, PCP Position: S Physician (General Medicine) Member Role: PCP Care Team Related Persons Name: CELYRACHEAL Escalera Address: home [address] [address] Name: CRISTAL VICENTE Address: [id number] Address: [address] [place] [address] [place] Name: GUILLAUME LYN Address: [id number] Address: home [address] [place] [address] [place] Name: ALISSA CARDOSO Address: home [address] [place] [address]
--- OUTSIDE RECORDS SUMMARY | 2023-06-22 13:52 | XMS_ITS | Continuity of Care Document ---
Author Organization [facility] Address [address] [address]- Care Team Providers Care Geneticist Name Role Phone Not on Staff, PCP Primary Care Physician Unavail able [facility]): [facility]22 - 10/22/22 [facility] and [facility] [address] [address] Attending Physician: Isaías Paredes Admitting Physician: AdmIsíaas austin Referring Physician: AdmtrIsaías Allergies, Adverse Reactions, Alerts [...] vaccine, inactivated 03/16/07 Give n SARS-CoV-2 mRNA ([id number]-jhdw-nnwvw) vax 07/02/21 Recorded SARS-CoV-2 mRNA ([id number]-lxhq-emqhw) vax 04/29/21 Recorded Meningococcal Polysaccharide Vaccine 09/07/12 [...] 03/07/92 G iven 1Result Comment: received at [facility] on [facility] 2Admin Note: VIS GIVEN 3Admin Note: VIS [...] 23Admin Note: HIB 24Admin Note: HIB Medications acetaminophen 325 mg oral tablet 325 mg, 1, tablet, By Mouth, Every 4 hours, PRN, # 30 tablet, Refills 0, Tot. Refills 0, Maintenance, as needed for pain, 08/20/22 13:48:00 EDT, Route to Pharmacy Electronically, [facility]/pharmacy #[id number], Partial fill upon patient request if the prescriptio... Start Date: 08/20/22 Status: Ordered ibuprofen 800 mg oral tablet 800 mg, 1, tablet, By Mouth, 3 times a day, # 90 tablet, Refills 0, Tot. Refills 0, Maintenance, 08/20/22 13:48:00 EDT, Route to Pharmacy Electronically, [facility]/pharmacy #[id number], Partial fill upon patientrequest if the prescription is for a schedule II op... Start Date: 08/20/22 Status: Ordered ibuprofen 800 mg oral tablet 800 mg, 1, tablet, By Mouth, Every 8 hours, PRN, (4-6), may give 400mg per patient preference and re-dose with 400mg within 8 hours if needed. Patient should only receive a total of 800mg of Ibuprofen every 8 hours., # 40 tablet, Refills 0, Tot. Ref... Start Date: 07/11/22 Status: Ordered Multivitamin Daily, 0 Refills, Maintenance, 08/20/22 13:45:00 EDT, Partial fill upon patient request if the prescription is for a schedule II opioid drug. Start Date: 08/20/22 Status: Ordered NIFEdipine (Eqv-Procardia XL) 30 mg oral tablet, extended release 1 tablet = 30 mg, By Mouth, Daily, # 90 tablet, 0 Refills, Maintenance, 08/20/22 13:47:00 EDT, ER Tablet, [facility]/pharmacy #[id number], Partial fill upon patient request if the prescription is for a schedule II opioid drug., 150, cm, 06/14/23 13:33:00 EDT, Heig... Start Date: 08/20/22 Status: Ordered NIFEdipine 30 mg oral tablet, extended release 30 mg, 1, tablet, By Mouth, Daily, # 30 tablet, Refills 0, Tot. Refills 0, Maintenance, 07/11/22 10:28:00 EDT, Route to Pharmacy Electronically, [facility]/pharmacy #[id number], Partial fill upon patient request if the prescription is for a schedule II opioid drug... Start Date: 07/11/22 Status: Ordered Tylenol 325 mg oral capsule 2 capsule = 650 mg, By Mouth, Every 4 hours, PRN as needed for pain, # 120 capsule, 0 Refills, Maintenance, 07/11/22 10:24:00 EDT, Capsule, [facility]/pharmacy #[id number], Partial fill upon patient request if [...] engaged with services. Pt made aware of [facility] services. Social History Social History Type Response Smoking Status Former smoker, quit more than 30 days ago entered on: 04/14/22 Sex Patient Care team information Care Team Personnel Name: Not on Staff, PCP Position: [facility] Physician (General Medicine) Member Role: PCP Care Team Related Persons Name: RACHEAL TA Address: home [address] [address] Name: CRISTAL VICENTE Address: [id number] Address: [address] [place] [address] [place] Name: GUILLAUME LYN Address: [address] Address: [address] [place] [address] [place] Name: ALISSA CARDOSO Address: home [address] [place] [address]
--- OUTSIDE RECORDS SUMMARY | 2023-06-22 13:52 | XMS_ITS | Continuity of Care Document ---
Author Organization [facility] Address [address] [place] [address]- Care Team Providers Care Counseling Department Chair Name Role Phone [place]-Geoffrey CARDOZO, Mara Primary Care Physicia n [facility]counter [facility] Date(s): 12/07/18 - 04/06/[address] [address]- [facility] Attending Physician: Not on Staff, Attending MD [...] give 325mg per patient preference and re-dose [id number] within 4 hours, if needed. Patient should [...] engaged with services. Pt made aware of [facility] services. 2Problem added by Discern Expert Social History Social History Type Response Smoking Status Former smoker, quit more than 30 days ago entered on: 08/10/18 Sex
--- OUTSIDE RECORDS SUMMARY | 2023-06-22 13:52 | XMS_ITS | Continuity of Care Document ---
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 subsides.?? Use your bathroom at home every 3 to 4 hours, rinse, and change your pads. Warm showers feel great on achy muscles, sore backs and sore bottoms. Exercise: Walking is the best form of exercise.?? Wait until your follow up appointment with your provider in4-6 weeks before engaging in more strenuous activity. Diet: Drink plenty of fluids to avoid constipation and to help support your recovery. Eat plenty of iron rich foods such as red meat, iron fortified cereals like Total and Cream of Wheat, raisins, prunes, greens and spinach.?? These will help to build your blood count back up as all women lose some blood after delivery.?? Also add foods rich in Vitamin C such as strawberries, oranges, papayas, kale and chahal peppers. Continue to take your vitamins if you are .?? If you are not follow the instructions of your provider.?? If you were prescribed iron supplements such as ferrous sulfate, it is important to continue these until your doctor or scale agent tells you to stop. Breast Care for Nursing Mothers: Wear a comfortable fitting, supportive nursing bra.?? An underwire bra is not recommended. Express drops of breast milk and rub over your nipples and areola (brown area) before and after each feeding to protect and heal sensitive skin and then air dry your nipples.?? If you are experiencing any soreness, you may purchase nipple cream such as TenderCare or Lansinoh.?? Use it in the following manner:?? finish your feeding or pumping session, self-express colostrum onto your nipple and air dry, apply the nipple cream to the nipple and areola.?? Use only small amounts for best results. If you are having difficulty getting the baby to latch onto the breast due to swelling of the areola, try applying pressure with your fingers for a couple of minutes above and below your nipple and walk your fingers outward softening the area and pushing the swelling away.?? This technique is knownas reverse pressure softening.?? For demonstrations of this and other techniques such as the [place] Hand Expression technique, please refer to the resources section of the Consultation Services Guide that you received from services. When your milk first comes in, usually within 3 to 5 days after delivery, you may experience engorgement.?? Your breasts may become swollen and very tender.?? Cold compresses work great to help with discomfort and reduce swelling. It will get better in a couple of days.?? Continue to nurse your baby frequently.?? Call [facility]???s Consultation Service at [phone], press 1 to schedule an outpatient appointment or press 3 and a creative consultant will return your call that day or the next if you call after 3pm. Breast Care for Bottle Feeding Mothers: Engorgement may occur within the first week after delivery.?? Your breasts may become hard and verytender.?? A cool compress of cleaned raw green cabbage leaves applied to the breast and changed as leaves wilt has been proven helpful for many women.?? Ice packs or frozen bags of peas also work nicely to ease the discomfort.?? The soreness will only last a couple of days. Keep your back turned to the water while showering to decrease breast stimulation. Wear a snug fitting bra such as a sports bra. Control:?? Your doctor or scale agent will discuss control methods with you when you are discharged from thespital or at your checkup.?? Be sure to let your provider know if you are . You had a Nexplanon placed on 07/11/2022.?? This control method is effective for up to 3 years. Pain Management:?? Cramping after is common and increases in strength with each baby you have.?? If you experience painful cramps, and have no allergies to acetaminophen (Tylenol) or ibuprofen (Motrin), you may continue to take these medications as you did in the hospital.?? Ibuprofen is also helpful with back aches following epidurals, perineal pain following a vaginal delivery, and moderate incisional pain after a section or a tubal ligation.?? If you experience gas distention, especially after surgery, you may take an over the counter medication called simethicone.?? Take these chewable tablets 4 times a day as needed and directed on the package.?? Keep moving.?? Walking or rocking in a chair, will help to move the gas along.?? Nicole tea made with heated nicole kong (instead of water) and a tea bag, stirred to dissolve carbonation (bubbles) is a helpful drink to soothe a gassy stomach. Warning Signs of a Problem to Notify Your Doctor or Hotel Office Manager of: Heavy vaginal bleeding ??? which is soaking a pad every hour with bright red blood. Passing blood clots the size of an egg or larger. An incision that is not healing. A temperature greater than or equal to 100.4 especially if accompanied by any of the following symptoms ??? painful, frequent urination; extreme back or flank pain; lower belly pain with a foul smellto your vaginal flow; a red hard hot area on your breast.?? Severe headache that does not go away after taking acetaminophen or ibuprofen.?? A headache that changes your vision, including seeing spots or blurring. Right sided upper abdominal pain along the rib cage area. Pain in your legs that is warm and tender to the touch. depression signs may include ??? loss of interest in your baby, weepiness, difficulty focusing, weight loss with no appetite, exhaustion, feeling overwhelmed or anxious, feelings of despair, or thoughts of harming yourself or your baby.?? These symptoms are important and should be discussed with your doctor or scale agent. depression may develop over a period of time and needs prompt medical attention.?? Do not suffer in silence.?? In both the Becoming a Family booklet and the[facility] Guide there is a screening tool used to identify women at risk, called the [place] Scale which you have taken in the office prior to delivery and again during your hospital [facility].?? Three to four weeks after your delivery, and before your check with your provider, take this test and share your results with your provider.?? Be sure to mention any score of 10 or more.?? Many women, and even some partners, may experience the ???baby blues?? .?? This is a state of feeling overwhelmed and weepy.?? Discomfort from childbirth, hormonal changes, exhaustion, changes to your body and lifestyle are a few of the things that contribute to the highs and lows new parents go through.?? Don???t be afraid to ask your partner or family and friends for some help at home so you can get some rest and a few minutes to yourself.?? The blues will quickly pass. Personal Safety: Every person has the right to feel safe at home and live free from physical or emotional harm.?? Ifyou have suffered mental or physical abuse at home, you are not alone.?? There is help.?? Please call HOTLINE or the [facility] at [phone]. CARE Bathing: Give your baby a sponge bath until the cord falls off in about 1-3 weeks.?? It is not necessary to bathe your baby every day, usually every few days is sufficient. ??Keep the cord area dry.?? Some baby girls will have a small bloody vaginal discharge. No need to worry as this is normal. It is not necessary to use lotions on the baby???s skin.?? Powders and oils are not recommended.?? Babies often get rash on their skin which comes and goes quickly and does not require any special care.?? Diaper rash can be treated with a zinc oxide preparation such as Desitin or Balmex diaper cream. Diapers:? After the 1st??few days, the baby will start wetting more often.?? A breast fed baby will wet about6-8 times a day once mom???s milk comes in ??? usually day 4 or 5.?? This is a good sign that the baby is getting plenty to eat.?? You may notice an orangey-pink stain in the diaper which is normal for the first few days. The baby???s first bowel movements are sticky, black and tarry.?? As the baby starts to feed more often over the next couple of days, the stool will change to a seedy yellowish green color and eventually a loose mustard like stool for a breast fed baby and a more formed yellow stool for a bottle fed baby. your Baby: Congratulations on deciding to breastfeed your baby! You are providing your baby with the most nourishing food source on the planet, your breast milk.?? Cues such as rooting, suckling, licking and fussing may be telling you that your baby is ready to eat ??? and it is time to offer your breasts. The first weeks following the are a time for you and your baby to learn.?? The baby may be sleepy the first day after with 8 to 12 attempts ??? including 2 to 4 good feedings.?? Over the next couple of days the baby will become more wakeful, feed 8 to 12 times a day and have more wet and poopy diapers.?? Cluster feeding, especially during the evening/night time, is normal.?? Listen for swallowing sounds and watch the baby as they become more relaxed at the breast ??? bothgood signs that the baby is getting a good amount of milk.?? Refrain from smoking or eating edible marijuana while you are . Even though marijuana is legal in the state of [place],??it is harmful for your baby.??It stays in breast milk for along period of time and THC can be found in the baby's urine for up to 3 weeks. Second hand smoke can also increase the risk??of Sudden Infant Syndrome / SIDS. Nursing is wonderful but many moms and babies have some degree of difficulty with at first. Don???t give up!?? There are many resources available to help you overcome these temporary problems. Your hand packer wants to hear from you if you are having difficulties and can offermany helpful suggestions.?? Some offices have consultants on staff. [facility]???s Consultation Service is available 7 days a week, 8am to 3pm at [phone].?? Press 1 to schedule an outpatient appointment.?? Press 3 to leave a message for the chain sales consultant, a creative consultant will return your call that day or the next if you call after 3pm. Support Groups ??? [facility] offers free gatherings for moms and babies weekly.?? All groups meet at the [facility]???s 2nd??floor, typically in the [facility] Conference Room, Thursday???s 1 to 2 pm.?? [employer] is a worldwide organization with local community support, mother to mother support.?? Information can be found at https://www.lllusa.org Formula Feeding your Baby: Formula fed babies should eat every 3 to 4 hours.?? Look for cues that your baby is ready ??? such as rooting and sucking, licking and fussing.?? At the baby???s stomach is small and may take 10-15ml of formula.?? Over the next few days the baby will become more wakeful and feed more frequently, gradually increasing the amounts of formula taken at a feeding.?? Your hand packer will provideinstructions on how to increase the amount.?? Refer to packaging for formula preparation directions, depending on the type of formula you purchase ??? powder, concentrate or ready to feed. Infant Safety: ALWAYS REMEMBER - BACK TO SLEEP! Babies sleep safest on their backs.?? Every sleep.?? Every time.?? Every nap. Babies need a firm sleep surface with a tight fitting bottom sheet.?? NO loose bedding.?? NO pillows.?? NO bumper pads or rolls.?? NO heavy or fluffy blankets. NO stuffed toys. It is not safe for your baby to sleep in your bed, in a chair, or on a sofa.?? Your baby should notsleep with you or anyone else. Car Seat: Always place your baby in a rear facing car seat in the backseat of the car. Car seat inserts that come with the car seat can be used as they are crash tested with the seat.?? You should not buy additional inserts.?? Dress the baby in a weather appropriate outfit.?? Avoid bulky clothing such as snowsuits or jackets as the baby may squirm in the seat, loosening the shoulder straps and come out of the top of the harness if you need to brake hard or are in an accident.?? Once the baby issecured in the seat you can cover your little one with a blanket if needed.?? If your baby was bornprematurely, follow the directions given to you.?? If you have not already done so, check to make sure your car seat is installed correctly. Check with your local Fire and Police Department to see if they offer car seat inspections at a location close to you. Babies Can Move: ?? Never leave your baby unattended on any surface, raised or flat, or while bathing.?? They can squirm, fall or hurt themselves.?? Always fasten the safety belt when using an infantseat or swing ??? as they may lean forward and fall. Good Handwashing is the number one way you can protect the baby from too?? many germs and prevent infection.?? When family and friends visit ask that they wash their hands before holding your baby.??Also avoid crowds the first month of your baby???s life to protect from colds and flus. Shaking a baby out of frustration can cause severe and lasting damage, even to a baby.?? If you feel you are becoming angry or overwhelmed, place the baby in a safe place and walk away.?? Call a friend or family member.?? If they are not able to offer immediate help call the Parental Stress Hotline at?? , an anonymous 29/09 source of help. Warning Signs to notify your hand packer of: Most babies develop a small amount of jaundice (a yellowish skin color) in the face and upper chest, by about 3 days of age.?? If the yellow color extends below the baby???s belly or if the baby is very sleepy and not feeding well, call your hand packer. A rectal temperature of 100.4F as it could be a sign of infection. Projectile vomiting that continues with each feeding could indicate reflux or a problem with the formula. Extreme sleepiness or very fussy. Cold symptoms with nasal stuffiness, especially if the baby is having difficulty feeding. Constipation with hard stools. Blue or dusky color, call 911. This information has been modified by your health care provider with permission from the publisher. ?? * Yadi Loyd: PERFORM Event Display: Care Team Progress Note Authored Date: Patient: ??ZULEYKA LYN ? Age:??31 Years?Sex:??Female?:??1990?? Subjective cart rounds day??1 assessment for assistance Patient??has no previous experience Feeding sheet is adequately filled out Assessment/Plan Patient has documented 3 latches since delivery and has been supplementing by choice.?? Patients plan is to feed both.??Assisted with latch on the left breast.?? Patient has large nipples, baby will??latch, suck 4-5 times and then release.?? Patient??can easily hand express drops.?? Encouraged patient to keep working on the latch,??now that she knows how to position.?? Told patient we??would check in on her tomorrow. ? Discussed: Stimulation and Milk Supply Education Breast milk supply is created in the first two weeks Stimulate every 2-3 hours for optimal supply Don't go longer than 4 hours without stimulation Stimulation includes hand expression, latching or pumping Hormones release with initial touch, therefore frequent touch is supportive ? Basic education discussed with mother/family including:? Positioning for optimal feeding Asymmetric latch technique Frequent breast stimulation for initiation and maintenance of milk supply Engorgement prevention and management (page 12 guide) How to know your baby is getting enough (page 14 guide) Hand expression When to use a breast pump Consultation reference guide given to mother with contact information for services and ongoing support as needed.? OB Summary : 3 . Baby A - Weight: 3.033 kg Baby A - Date, Time of : 07/09/22 23:40:00 Baby A - Gender: Female EGA at Documented Date, Time: 37W 1D Weight at Delivery Baby A - Delivery Type: Vaginal Delivery Complications: Hemorrhage, peripartum or , Preeclampsia, Retained placenta OB History History?(2,0,0,2)? # 1 ?Baby 1 ?Outcome Date:??09/02/2013?Outcome or Result:??Vaginal ?Gest Age:??40 weeks ? Outcome:??Live ? Sex:??Male?Wt:?3090 g ?Anesthesia Type:??Epidural ?Child's Name:??Gionniie ?Hospital:??[facility] ?? # 2 ?Baby 1 ?Outcome Date:??02/27/2019?Outcome or Result:??Vaginal ?Gest Age:??38 weeks 4 days ? Outcome:??Live ? Sex:??Male?Wt:?2960 g ? Complications:??cord 2 times around neck and trueknot in cord Active Problem List Active Problem List Anxiety and depression: (Medical) Hx of mental health services with medications (sertraline 100mg) during previous ). ??Pt reports at today's OBI visit she is no longer engaged with services. ??Pt made aware of [facility] services. Encounter for induction of labor: (Medical) Gestational hypertension: (Medical) Hemorrhage after delivery of fetus: (Nursing) Problem added by Discern Expert (07/10/22) History of gestational hypertension: (Medical) History of hemorrhage: (Medical) Hx of migraines: (Medical) : (Obstetric) (04/14/22) Retained placenta: (Nursing) Problem added by Discern Expert (07/10/22) Rh negative, (A negative): (Medical) Seasonal allergies: (Medical) Severe obesity: (Medical) Severe preeclampsia: (Medical) Susceptible to Varicella (non-immune), currently in third trimester: (Medical) Home Medications Acetaminophen: 650 mg = 2 capsule, By Mouth, Every 4 hours, PRN (as needed for pain) Aspirin: 162 mg = 2 tablet, By Mouth, Daily Medications Medications (5) Active SCHEDULED: (1) NIFEdipine 30 mg ER Tablet (NIFEdipine 30 mg oral tablet, extended release) ??30 mg, By Mouth, Daily CONTINUOUS: (2) Lactated Ringers (1000 mL) Cont IV 1,000 mL (Lactated Ringers 1,000 mL) ??1,000 mL, IV Infusion, 50mL/hr Magnesium Sulfate 20 Gm in 500 mL sterile water (Premix) 20 Gm (Magnesium Sulfate 20 Gm in 500 mL Premix 20 Gm) ??20 Gm 500 mL, IV Infusion PRN: (2) Acetaminophen 325 mg Tablet (Acetaminophen Tablet) ??650 mg, By Mouth, Every 4 hours Ibuprofen 800 mg Tablet (Ibuprofen Tablet) ??800 mg, By Mouth, Every 8 hours Patient Care team information Care Team Personnel Name: Not on Staff, PCP Position: [facility] Physician (General Medicine) Member Role: PCP Name: Tila Wing RN Position: [facility] OB RN Member Role: OB RN Care Team Related Persons Name: RACHEAL TA Address: home [address] [address] Name: CRISTAL VICENTE Address: [id number] Address: [address] [place] [address] [place] Name: EOBNIZULEYKA GIRL Address: [id number] Address: home [address] [place] [address] [place] Name: ALISSA CARDOSO Address: home [address] [place] [address]
--- OUTSIDE RECORDS SUMMARY | 2023-06-22 13:52 | XMS_ITS | Continuity of Care Document ---
Author Organization [facility] Address [address] [place] [address]- Care Team Providers Care Manager Process Name Role Phone [place] CARDOZO, Mara Primary Care Physicia n [facility]counter [facility] Date[facility]): [facility] [address] [address] Allergies, Adverse Reactions, Alerts Substance Reaction Severity [...] 0 Refills, Soft Stop, 11/11/19 15:11:00 EDT, [facility]/pharmacy #[id number], 150, cm, 11/09/19 19:11:00 EDT, Height, [...] engaged with services. Pt made aware of [facility] services. 2Problem added by Discern Expert Social History Social History Type Response Smoking Status Former smoker, quit more than 30 days ago entered on: 08/10/18 Sex Female
--- OUTSIDE RECORDS SUMMARY | 2023-06-22 13:52 | XMS_ITS | Continuity of Care Document ---
[facility] Address [address] [address]- Care Team Providers Care Freelance Patternmaker Name Role Phone Not on Staff, PCP Primary Care Physician Unavail able Encounter [facility] Date(s): 07/31/22 - 08/31/22 [facility] and [address] [address]- Attending Physician: Debbie Ewing CNM Admitting Physician: Debbie Ewing CNM Referring Physician: Reggie Nogueira CNM Allergies, Adverse Reactions, Alerts Substance Reaction [...] vaccine, inactivated 03/16/07 Give n SARS-CoV-2 mRNA ([id number]-[id number]) vax 07/02/21 Recorded SARS-CoV-2 mRNA (vownvjm-ignz-razge) vax 04/29/21 Recorded Meningococcal Polysaccharide Vaccine 09/07/12 [...] 03/07/92 G iven 1Result Comment: received at [facility] on [facility] 2Admin Note: VIS GIVEN 3Admin Note: [...] 08/20/22 13:48:00 EDT, Route to Pharmacy Electronically, [facility]/pharmacy #[id number], Partial fill upon patient request if the prescriptio... Start Date: 08/20/22 Status: Ordered ibuprofen 800 mg oral tablet 800 mg, 1, tablet, By Mouth, 3 times a day, # 90 tablet, Refills 0, Tot. Refills 0, Maintenance, 08/20/22 13:48:00 EDT, Route to Pharmacy Electronically, [facility]/pharmacy #[id number], Partial fill upon patientrequest if the [...] Refills, Maintenance, 08/20/22 13:47:00 EDT, ER Tablet, [facility]/pharmacy #[id number], Partial fill upon patient request if the prescription is for a schedule II opioid drug., 150, cm, 08/20/22 13:33:00 EDT, He[place]... Start Date: 08/20/22 Status: Ordered NIFEdipine 30 mg oral tablet, extended release 30 mg, 1, tablet, By Mouth, Daily, # 30 tablet, Refills 0, Tot. Refills 0, Maintenance, 07/11/22 10:28:00 EDT, Route to Pharmacy Electronically, [facility]/pharmacy #[id number], Partial fill upon patient request if the prescription is for a schedule II opioid drug... Start Date: 07/11/22 Status: Ordered Tylenol 325 mg oral capsule 2 capsule = 650 mg, By Mouth, Every 4 hours, PRN as needed for pain, # 120 capsule, 0 Refills, Maintenance, 07/11/22 10:24:00 EDT, Capsule, [facility]/pharmacy #[id number], Partial fill upon patient [...] with services. Pt made aware of [facility] services. Social History Social History Type Response Smoking Status Former smoker, quit more than 30 days ago entered on: 04/14/22 Sex Patient Care team information Care Team Personnel Name: Not on Staff, PCP Position: [facility] Physician (General Medicine) Member Role: PCP Care Team Related Persons Name: RACHEAL TA Address: home [address] [address] Name: CRISTAL VICENTE Address: [id number] Address: [address] [place] [address] [place] Name: GUILLAUME LYN Address: [address] Address: home [address] [place] [address] [place] Name: ALISSA CARDOSO Address: home [address] [place] [address]
--- OUTSIDE RECORDS SUMMARY | 2023-06-22 13:52 | XMS_ITS | Continuity of Care Document ---
Author Organization [facility] Address [address] [place] [address]- Care Team Providers Care Dog Control Officer Name Role Phone [place]-Geoffrey CARDOZO, Mara Primary Care Physicia n [facility] Date(s): 01/29/21 - 05/16/[address] [address]- Attending Physician: Not on Staff, Attending MD Allergies, Adverse Reactions, Alerts No Known Allergies Immunizations Given and Recorded Vaccine Date Status [...] Comment: received at [facility] on [facility] in [facility] 2Admin Note: VIS GIVEN 3Admin [...] HIB 23Admin Note: HIB 24Admin Note: HIB Problem List Condition Effective Dates Status Health Status Inform ant Anxiety and depression(Confirmed) 1 Active Body mass index 30+ - obesity(Confirmed) 2 02/27/19 Active Constipation(Confirmed) Active Hx of migraines(Confirmed) Active History of hemorrhage(Confirmed) Active History of gestational hypertension(Confirmed) Active Morbid obesity(Confirmed) Active Rh negative, (A negative)(Confirmed) Active Seasonal allergies(Confirmed) Active Severe obesity(Confirmed) Active Susceptible to Varicella (no n-immune), currently [...]
--- OUTSIDE RECORDS SUMMARY | 2023-06-22 13:52 | XMS_ITS | Continuity of Care Document ---
Author Organization [facility] Address [address] [place] [address]- Care Team Providers Care Insurance Business Analyst Name Role Phone [place]-Geoffrey CARDOZO, Mara Primary Care Physicia n Encounter [facility] Date(s): 05/29/20 - 08/16/[address] [address]- Attending Physician: Not on Staff, Attending MD [...] 03/07/92 G iven 1Result Comment: received at [facility] on [facility] in [facility] 2Admin Note: VIS GIVEN 3Admin Note: [...]
--- OUTSIDE RECORDS SUMMARY | 2023-06-22 13:53 | XMS_ITS | Continuity of Care Document ---
Author Organization [facility] Address [address] [place] [address]- Care Team Providers Care Bottle And Glass Inspector Name Role Phone Ana Maria CARDOZO, Mara Primary Care Physicia n [facility] Date(s): 07/17/20 - 10/11/[address] [address]- Attending Physician: Not on Staff, Attending MD Referring Physician: Mara Rodgers MD Allergies, Adverse Reactions, Alerts Substance Reaction [...] G iven 1Result Comment: received at [facility] in [facility] 2Admin Note: VIS GIVEN 3Admin Note: [...] engaged with services. Pt made aware of [facility] services. 2Problem added by Discern Expert Social History Social History Type Response Smoking Status Former smoker, quit more than 30 days ago entered on: 08/10/18 Sex Female
--- OUTSIDE RECORDS SUMMARY | 2023-06-22 13:53 | XMS_ITS | Continuity of Care Document ---
Author Organization [facility] Address [address] [place] [address]- Care Team Providers Care Home Economics Teacher Name Role Phone [place]-Geoffrey CARDOZO, Mara Primary Care Physicia n [facility] Date(s): 04/14/19 - 06/11/[address] [address]- [facility] Attending Physician: Not on Staff, Attending [...] give 325mg per patient preference and re-dose [id number] within 4 hours, if needed. Patient should [...] engaged with services. Pt made aware of [facility] services. 2Problem added by Discern Expert Social History Social History Type Response Smoking Status Former smoker, quit more than 30 days ago entered on: 08/10/18 Sex
--- OUTSIDE RECORDS SUMMARY | 2023-06-22 13:53 | XMS_ITS | Continuity of Care Document ---
Author Organization [facility] Address [address] [address]- Care Team Providers Care Reimbursement Director Name Role Phone [place]-Geoffrey CARDOZO, Mara Primary Care Physicia n Encounter [facility] Date(s): 02/21/22 - 03/23/22 [facility] [address] [address]- Allergies, Adverse Reactions, Alerts No Known Allergies [...] 03/07/92 G iven 1Result Comment: received at [facility] on [facility] in [facility] 2Admin Note: VIS [...] HIB 24Admin Note: HIB Problem List Condition Confirmation Course Effective Dates Status Health St atus Informant Anxiety and depression 1 Confirmed Active Body mass index 30+ - obesity 2 Confirmed 02/27/19 Active Constipation Confirmed Active Hx of migraines [...] with services. Pt made aware of [facility] services. 2Problem added by Discern Expert Social History Social History Type Response Smoking Status Former smoker, quit more than 30 days ago entered on: 08/10/18 Sex Female Patient Care team information Care Team Personnel Name: Mara Rodgers MD Position: [facility] Primary Care Physician Member Role: PCP Address: Address: [address] [place] [address] [place] [address]- [place] Care Team Related Persons Name: CELYRACHEAL Address: home [address] [address] Name: CRISTAL VICENTE Address: [address] Address: [address] [place] [address] [place] Name: JUAN JHAVERI Address: home [address] [place] [address]
--- OUTSIDE RECORDS SUMMARY | 2023-06-22 13:53 | XMS_ITS | Continuity of Care Document ---
Author Organization [facility] Address [address] [place] [address]- Care Team Providers Care Quality Facilitator Name Role Phone [place]-Geoffrey CARDOZO, Mara Primary Care Physicia n [facility] Date[facility]s): 12/26/20 - 02/01/[address] [address]- Attending Physician: Not on Staff, Attending MD [...] Comment: received at [facility] on [facility] in [facility] 2Admin Note: VIS GIVEN 3Admin [...] engaged with services. Pt made aware of [facility] services. 2Problem added by Discern Expert Social History Social History Type Response Smoking Status Former smoker, quit more than 30 days ago entered on: 08/10/18 Sex Female
--- OUTSIDE RECORDS SUMMARY | 2023-06-22 13:53 | XMS_ITS | Continuity of Care Document ---
Author Organization [facility] Address [address] [place] [address]- Care Team Providers Care Media Services Specialist Name Role Phone Dayana-Geoffrey CARDOZO, Mara Primary Care Physicia n Encounter [facility] Date(s): 02/03/19 - 03/11/[address] [address]- [facility] Attending Physician: Mojgan Hirsch MD Admitting Physician: Mojgan Hirsch MD Referring Physician: Mojgan Hirsch MD Allergies, Adverse Reactions, [...] give 325mg per patient preference and re-dose [id number] within 4 hours, if needed. Patient should [...] with services. Pt made aware of [facility] services. 2Problem added by Discern Expert Social History Social History Type Response Smoking Status Former smoker, quit more than 30 days ago entered on: 08/10/18 Sex
--- OUTSIDE RECORDS SUMMARY | 2023-06-22 13:53 | XMS_ITS | Continuity of Care Document ---
Author Organization [facility] Address [address] [address]- Care Team Providers Care Tax Compliance Representative Name Role Phone [place]-Geoffrey CARDOZO, Mara Primary Care Physicia n [facility] Date(s): 03/18/22 - 04/17/22 [facility] [address] [address]- Allergies, Adverse Reactions, Alerts Substance Reaction Severity [...] iven 1Result Comment: received at [facility] on [facility] in [facility] 2Admin Note: VIS GIVEN [...] acetaminophen 325 mg oral tablet 650 mg, 2, tablet, By Mouth, Every 4 hours, PRN, # 100 tablet, Refills 1, Tot. Refills 1, Acute 04/19/22 13:07:00 EST, for pain, 04/16/22 13:07:00 EST, Route to Pharmacy Electronically, [id number], Partial fill upon patient request if the pres... Start Date: 04/16/22 Stop Date: 04/19/22 Status: Ordered aspirin 81 mg oral tablet, chewable 162 mg, 2, tablet, By Mouth, Daily, # 180 tablet, Refills 2, Tot. Refills 2, Maintenance, 04/16/22 13:05:00 EST, Route to Pharmacy Electronically, [id number], Partial fill upon patient request if the prescription is for a schedule II opioid dr... Start Date: 04/16/22 Status: Ordered PNV By Mouth, Daily, 0 Refills, Maintenance, 04/14/22 15:27:00 EST, Partial fill upon patient request if the prescription is for a schedule II opioid drug. Start Date: 04/14/22 Status: Ordered Multivitamins with Folic Acid 1 mg oral capsule 1 capsule = 1 mg, By Mouth, Daily, # 90 tablet, 4 Refills, Maintenance, 04/16/22 13:06:00 EST, [id number], Partial fill upon patient [...] aware of [facility] services. 2Problem added by Discern Expert Social History Social History Type Response Smoking Status Former smoker, quit more than 30 days ago entered on: 04/14/22 Sex Female Patient Care team information Care Team Personnel Name: Mara Rodgers MD Position: [facility] Primary Care Physician Member Role: PCP Address: Address: [address] [place] [address] [place] [address]- Care Team Related Persons Name: RACHEAL TA Address: home [address] [address] Name: CRISTAL VICENTE Address: [address] Address: [address] [place] [address] Name: JUAN JHAVERI Address: [address] [place] [address]
--- OUTSIDE RECORDS SUMMARY | 2023-06-22 13:53 | XMS_ITS | Continuity of Care Document ---
Author Organization [facility] [employer] Address [address] [facility] [address] [place] [address]- Care Team Providers Care Rigging And Controls Aircraft Mechanic Name Role Phone Not on Staff, PCP Primary Care Physician Unavail able Encounter [facility] Date(s): 07/01/22 - 07/08/22 [facility] [employer] [facility] [address] [facility] [address] [facility], [address]th [place] [address]- Attending Physician: Sherry Quinones MD Referring Physician: [...] vaccine, inactivated 03/16/07 Give n SARS-CoV-2 mRNA (tiuwjbe-slly-vohhs) vax 07/02/21 Recorded SARS-CoV-2 mRNA (njkkgze-ogeh-wdwbw) vax 04/29/21 Recorded Meningococcal Polysaccharide Vaccine 09/07/12 [...] 03/07/92 G iven 1Result Comment: received at [facility] on [facility] 2Admin Note: VIS GIVEN 3Admin [...] 04/16/22 13:05:00 EST, Route to Pharmacy Electronically, [facility] #[id number], Partial fill upon patient request if the prescription is for a schedule II opioid dr... Start Date: 04/16/22 Status: Ordered nystatin topical [id number] u/gm powder 1 application, Topically, 3 times a day, # 60 each, 1 Refills, Maintenance, 07/01/22 14:34:00 EDT, Powder, [facility], Partial fill upon patient request if the prescription is for a schedule II opioid drug., 1 application Topically 3... Start Date: 07/01/22 Status: Ordered Multivitamins with Folic Acid 1 mg oral capsule 1 capsule = 1 mg, By Mouth, Daily, # 90 capsule, 6 Refills, Maintenance, 05/05/22 14:24:00 EST, [facility] #[id number], Partial fill upon patient request if [...] engaged with services. Pt made aware of [facility] services. 2Problem added by Discern Expert Social History Social History Type Response Smoking Status Former smoker, quit more than 30 days ago entered on: 04/14/22 Sex Female Patient Care team information Care Team Personnel Name: Not on Staff, PCP Position: [facility] Physician (General Medicine) Member Role: PCP Care Team Related Persons Name: RACHEAL TA Address: [address] [address] Name: CRISTAL VICENTE Address: [address] Address: [address] [place] [address] Name: ALISSA CARDOSO Address: home [address] [place] [address]
--- OUTSIDE RECORDS SUMMARY | 2023-06-22 13:53 | XMS_ITS | Continuity of Care Document ---
Author Organization [facility] Address [address] [address]- Care Team Providers Care Manufacturing Maintenance Mechanic Name Role Phone Not on Staff, PCP Primary Care Physician Unavail able [facility] Date(s): 05/14/23 - 06/13/23 [facility] [address] [address] Allergies, Adverse Reactions, Alerts Substance [...] vaccine, inactivated 03/16/07 Give n SARS-CoV-2 mRNA (wzzvjha-cvcy-fsbdw) vax 07/02/21 Recorded SARS-CoV-2 mRNA (ecfqurj-ovcz-fhxml) vax 04/29/21 Recorded Meningococcal Polysaccharide Vaccine 09/07/12 [...] 03/07/92 G iven 1Result Comment: received at [facility] on [facility] 2Admin Note: VIS GIVEN 3Admin Note: VIS [...] 08/20/22 13:48:00 EDT, Route to Pharmacy Electronically, [facility]/pharmacy #[id number], Partial fill upon patient request if the prescriptio... Start Date: 08/20/22 Status: Ordered ibuprofen 800 mg oral tablet 800 mg, 1, tablet, By Mouth, 3 times a day, # 90 tablet, Refills 0, Tot. Refills 0, Maintenance, 08/20/22 13:48:00 EDT, Route to Pharmacy Electronically, [facility]/pharmacy #[id number], Partial fill upon patientrequest if the [...] Refills, Maintenance, 08/20/22 13:47:00 EDT, ER Tablet, [id number], Partial fill upon patient request if the prescription is for a schedule II opioid drug., 150, cm, 08/20/22 13:33:00 EDT, Heig... Start Date: 08/20/22 Status: Ordered NIFEdipine 30 mg oral tablet, extended release 30 mg, 1, tablet, By Mouth, Daily, # 30 tablet, Refills 0, Tot. Refills 0, Maintenance, 07/11/22 10:28:00 EDT, Route to Pharmacy Electronically, [facility]/pharmacy #[id number], Partial fill upon patient request if the prescription is for a schedule II opioid drug... Start Date: 07/11/22 Status: Ordered Tylenol 325 mg oral capsule 2 capsule = 650 mg, By Mouth, Every 4 hours, PRN as needed for pain, # 120 capsule, 0 Refills, Maintenance, 07/11/22 10:24:00 EDT, Capsule, [facility]/pharmacy #[id number], Partial fill upon patient request if [...] with services. Pt made aware of [facility] services. Social History Social History Type Response Smoking Status Former smoker, quit more than 30 days ago entered on: 04/14/22 Sex Patient Care team information Care Team Personnel Name: Not on Staff, PCP Position: [facility] Physician (General Medicine) Member Role: PCP Care Team Related Persons Name: RACHEAL TA Address: home [address] [facility] [address] [place] [address] Name: CRISTAL VICENTE Address: [address] Address: home [address] [place] [address] [place] Name: GUILLAUME LYN Address: [address] Address: [address] [facility] [address] [address] [place] Name: LAISSA CARDOSO Address: home [address] [place] [address]
--- OUTSIDE RECORDS SUMMARY | 2023-06-22 13:53 | XMS_ITS | Continuity of Care Document ---
Author Organization [facility] Address [address] [place] [address]- Care Team Providers Care Instructor Programmable Controllers Name Role Phone [place]-Geoffrey CARDOZO, Mara Primary Care Physicia n [facility] Date(s): 12/25/20 - 01/24/[address] [address]- Allergies, Adverse Reactions, Alerts Substance Reaction Severity [...] 03/07/92 G iven 1Result Comment: received at [facility] in [facility] 2Admin Note: VIS GIVEN 3Admin Note: [...] with services. Pt made aware of [facility] services. 2Problem added by Discern Expert Social History Social History Type Response Smoking Status Former smoker, quit more than 30 days ago entered on: 08/10/18 Sex Female
--- OUTSIDE RECORDS SUMMARY | 2023-06-22 13:53 | XMS_ITS | Continuity of Care Document ---
Author Organization [facility] Address [address] [place] [address]- Care Team Providers Care Waterproof Coating Machine Tender Name Role Phone [place]-Geoffrey CARDOZO, Mara Primary Care Physicia n [facility]counter [facility] Date(s): 02/27/19 - 03/01/[address] [address]- [facility] Discharge Disposition: A-D/C Home Attending Physician: Sarah Agarwal MD Admitting Physician: Sarah Agarwal MD Referring Physician: Sarah Agarwal MD Allergies, Adverse Reactions, Alerts Substance Reaction [...] give 325mg per patient preference and re-dose [id number] within 4 hours, if needed. Patient should [...] with services. Pt made aware of [facility] services. 2Problem added by Discern Expert Vital Signs Most recent to oldest [Reference Range]: 1 2 3 Height 150 cm (03/01/19 8:20 AM) 150 cm (03/01/19 12:00 AM) 150 cm (02/28/19 8:27 PM) Weight 106 kg (02/27/19 10:58 AM) 106 kg (02/27/19 9:43 AM) Oxygen Saturation [94-100 %] 100 % (03/01/19 12:00 AM) 98 % (02/28/19 5:05 PM) 98 % (02/28/19 5:00 PM) Pulse Rate [55-90 bpm] 80 bpm (03/01/19 8:20 AM) 83 bpm (03/01/19 12:00 AM) 90 bpm (02/28/19 5:29 PM) Body Mass Index [18.5-24.99] 47.11 *>HHI* (02/27/19 10:58 AM) 47.11 *>HHI* (02/27/19 9:43 AM) Blood Pressure [90-138/55-84 mm Hg] 125/75mm Hg (03/01/19 8:20 AM) 124/80mm Hg (03/01/19 12:00 AM) 127/79mm Hg (02/28/19 8:00 PM) Respiratory Rate [16-30 br/min] 17 br/min (03/01/19 8:20 AM) 18 br/min (03/01/19 12:56 AM) 18 br/min (03/01/19 12:00 AM) Temperature [96.8-100.4 DegF] 98.8 DegF (03/01/19 8:20 AM) 98.0 DegF (03/01/19 12:00 AM) 97.8 DegF (02/28/19 5:29 PM) Liters per Minute 2 L/min (02/28/19 4:30 PM) 3 L/min (02/28/19 4:23 PM) 4 L/min (02/28/19 4:15 PM) Mode of Delivery (Oxygen) Room air (03/01/19 12:00 AM) Room air (02/28/19 5:05 PM) Room air (02/28/19 5:00 PM) Blood pressure sites Arm, left (03/01/19 8:20 AM) Arm, left (02/28/19 5:29 PM) Arm, left (02/28/19 4:06 PM) Temperature Route Oral (03/01/19 8:20 AM) Oral (03/01/19 12:00 AM) Oral (02/28/19 5:29 PM) Dry Weight 106 kg (02/27/19 10:58 AM) 106 kg (02/27/19 9:43 AM) Weight Obtained Via Standing scale (02/27/19 9:43 AM) Dry Weight Obtained Via Standing scale (02/27/19 9:43 AM) Sensory deficits None (02/27/19 10:58 AM) Mobility assistance Independent (02/27/19 10:58 AM) Social History Social History Type Response Smoking Status Former smoker, quit more than 30 days ago entered on: 08/10/18 Sex
--- OUTSIDE RECORDS SUMMARY | 2023-06-22 13:53 | XMS_ITS | Continuity of Care Document ---
Author Organization [facility] Address [address] [address]- Care Team Providers Care Senior Research Executive Name Role Phone Not on Staff, PCP Primary Care Physician Unavail able [facility]s): 04/10/22 - 05/10/22 [facility] and [address] [address] Allergies, Adverse Reactions, Alerts Substance Reaction Severity [...] 03/07/92 G iven 1Result Comment: received at [facility] on [facility] in [facility] 2Admin Note: [...] 04/16/22 13:05:00 EST, Route to Pharmacy Electronically, [facility]/pharmacy #[id number], Partial fill upon patient request if the prescription is for a schedule II opioid dr.Rain. Start Date: 04/16/22 Status: Ordered PNV By Mouth, Daily, 0 Refills, Maintenance, 04/14/22 15:27:00 EST, Partial fill upon patient request if the prescription is for a schedule II opioid drug. Start Date: 04/14/22 Status: Ordered Multivitamins with Folic Acid 1 mg oral capsule 1 capsule = 1 mg, By Mouth, Daily, # 90 tablet, 4 Refills, Maintenance, 04/16/22 13:06:00 EST, [facility]/pharmacy #[id number], Partial fill upon patient request if the prescription is for a schedule II opioid drug., 1 capsule By Mouth Daily, 150, cm, 04/16/22 12:... Start Date: 04/16/22 Status: Ordered Multivitamins with Folic Acid 1 mg oral capsule 1 capsule = 1 mg, By Mouth, Daily, # 90 capsule, 6 Refills, Maintenance, 05/05/22 14:24:00 EST, [facility]/pharmacy #[id number], Partial fill upon patient request if the prescription is for a schedule II opioid drug., 1 capsule By Mouth Daily, 150, cm, 04/16/22 12... Start Date: 05/05/22 Status: Ordered Problem List Condition Confirmation Course [...] engaged with services. Pt made aware of [facility] services. 2Problem added by Discern Expert Social History Social History Type Response Smoking Status Former smoker, quit more than 30 days ago entered on: 04/14/22 Sex Female Patient Care team information Care Team Personnel Name: Not on Staff, PCP Position: [facility] Physician (General Medicine) Member Role: PCP Care Team Related Persons Name: RACHEAL TA Address: [address] [address] Name: CRISTAL VICENTE Address: [address] Address: [address] [place] [address] Name: AUSTINSHAD JUAN Address: home [address] [place] [address]
--- OUTSIDE RECORDS SUMMARY | 2023-06-22 13:53 | XMS_ITS | Continuity of Care Document ---
Author Organization [facility] Address [address] [place] [address]- Care Team Providers Care Tableau Developer Name Role Phone [place]-Geoffrey CARDOZO, Mara Primary Care Physicia n [facility]counter [facility] Date(s): 05/29/20 - 06/28/[address] [address]- Allergies, Adverse Reactions, Alerts Substance Reaction Severity [...] G iven 1Result Comment: received at [facility] in [facility] 2Admin Note: VIS GIVEN 3Admin Note: [...] engaged with services. Pt made aware of [facility] services. 2Problem added by Discern Expert Social History Social History Type Response Smoking Status Former smoker, quit more than 30 days ago entered on: 08/10/18 Sex Female
--- OUTSIDE RECORDS SUMMARY | 2023-06-22 13:53 | XMS_ITS | Continuity of Care Document ---
Author Organization [facility] Address [address] [address]- Care Team Providers Care Cutting Supervisor Name Role Phone Not on Staff, PCP Primary Care Physician Unavail able [facility] Date[facility]): 05/29/22 - 08/28/22 [facility] [address] [address]- Attending Physician: Not on Staff, Attending MD Admitting Physician: Marcy Brooks MD Referring Physician: Racheal Sunshine CNM Allergies, Adverse Reactions, Alerts Substance Reaction [...] vaccine, inactivated 03/16/07 Give n SARS-CoV-2 mRNA (fyftghx-rucn-eeaji) vax 07/02/21 Recorded SARS-CoV-2 mRNA (nbcqmkp-wllb-ssevk) vax 04/29/21 Recorded Meningococcal Polysaccharide Vaccine 09/07/12 [...] G iven 1Result Comment: received at [facility] on [facility] 2Admin Note: [...] 08/20/22 13:48:00 EDT, Route to Pharmacy Electronically, [id number], Partial fill upon patient request if the prescriptio... Start Date: 08/20/22 Status: Ordered ibuprofen 800 mg oral tablet 800 mg, 1, tablet, By Mouth, 3 times a day, # 90 tablet, Refills 0, Tot. Refills 0, Maintenance, 08/20/22 13:48:00 EDT, Route to [facility], [id number], Partial fill upon patientrequest if the [...] 10:28:00 EDT, Route to Pharmacy Electronically, [facility]/pharmacy #[id number], Partial fill upon patient request if the prescription is for a schedule II opioid drug... Start Date: 07/11/22 Status: Ordered Tylenol 325 mg oral capsule 2 capsule = 650 mg, By Mouth, Every 4 hours, PRN as needed for pain, # 120 capsule, 0 Refills, Maintenance, 07/11/22 10:24:00 EDT, Capsule, [facility]/pharmacy #[id number], Partial fill upon patient request [...] engaged with services. Pt made aware of [facility] services. Social History Social History Type Response Smoking Status Former smoker, quit more than 30 days ago entered on: 04/14/22 Sex Patient Care team information Care Team Personnel Name: Not on Staff, PCP Position: [facility] Physician (General Medicine) Member Role: PCP Care Team Related Persons Name: RACHEAL TA Address: home [address] [address] Name: CRISTAL VICENTE Address: [address] Address: [address] [place] [address] [place] Name: GUILLAUME LYN Address: [address] Address: home [address] [place] [address] [place] Name: ALISSA CARDOSO Address: home [address] [place] [address]
--- OUTSIDE RECORDS SUMMARY | 2023-06-22 13:53 | XMS_ITS | Continuity of Care Document ---
Author Organization [facility] Address [address] [place] [address]- Care Team Providers Care Business Intelligence Administrator Name Role Phone Not on Staff, PCP Primary Care Physician Unavail able [facility]): 05/13/22 - 07/24/22 [facility] and [address] [address]- Attending Physician: Not on Staff, Attending MD [...] vaccine, inactivated 03/16/07 Give n SARS-CoV-2 mRNA (wewvlxe-rmwt-azpld) vax 07/02/21 Recorded SARS-CoV-2 mRNA (oakcyxd-rmlc-xjywv) vax 04/29/21 Recorded Meningococcal Polysaccharide Vaccine 09/07/12 [...] 03/07/92 G iven 1Result Comment: received at [facility] on [facility] in [facility] 2Admin Note: VIS GIVEN 3Admin Note: [...] 07/11/22 10:28:00 EDT, Route to Pharmacy Electronically, [facility]/pharmacy #[id number], Partial fill upon [...] engaged with services. Pt made aware of [facility] services. Social History Social History Type Response Smoking Status Former smoker, quit more than 30 days ago entered on: 04/14/22 Sex Patient Care team information Care Team Personnel Name: Not on Staff, PCP Position: S Physician (General Medicine) Member Role: PCP Care Team Related Persons Name: CELYRACHEAL Escalera Address: home [address] [address] Name: CRISTAL VICENTE Address: [address] Address: [address] [place] [address] [place] Name: GUILLAUME LYN Address: [address] Address: home [address] [place] [address] [place] Name: ALISSA CARDOSO Address: home [address] [place] [address]
--- OUTSIDE RECORDS SUMMARY | 2023-06-22 13:53 | XMS_ITS | Continuity of Care Document ---
Author Organization [facility] Address [address] [place] [address]- Care Team Providers Care Sales Promotion Coordinator Name Role Phone [place]-Geoffrey CARDOZO, Mara Primary Care Physicia n [facility]s): 05/18/20 - 07/05/[address] [address]- Attending Physician: Not on Staff, Attending MD [...] G iven 1Result Comment: received at [facility] on [facility] in [facility] 2Admin Note: VIS GIVEN 3Admin [...] engaged with services. Pt made aware of [facility] services. 2Problem added by Discern Expert Social History Social History Type Response Smoking Status Former smoker, quit more than 30 days ago entered on: 08/10/18 Sex Female
--- OUTSIDE RECORDS SUMMARY | 2023-06-22 13:53 | XMS_ITS | Continuity of Care Document ---
Author Organization [facility] Address [address] [place] [address]- Care Team Providers Care Prepress Operator Name Role Phone Dayana-Geoffrey CARDOZO, Mara Primary Care Physicia n Encounter [facility] Date(s): 03/04/19 - 03/14/[address] [address]- [facility] Attending Physician: Isaías Paredes Admitting [...] give 325mg per patient preference and re-dose [id number] within 4 hours, if needed. Patient should [...] with services. Pt made aware of [facility] services. 2Problem added by Discern Expert Social History Social History Type Response Smoking Status Former smoker, quit more than 30 days ago entered on: 08/10/18 Sex
--- OUTSIDE RECORDS SUMMARY | 2023-06-22 13:53 | XMS_ITS | Continuity of Care Document ---
Author Organization [facility] Address [address] [place] [address]- Care Team Providers Care Employment Specialist Name Role Phone [place]-Geoffrey CARDOZO, Mara Primary Care Physicia n [facility] Date(s): 05/09/21 - 06/08/[address] [address]- Attending Physician: Isaías Paredes Admitting Physician: Isaías Paredes Referring Physician: AdmIsaías austin Allergies, Adverse Reactions, Alerts No Known Allergies [...] Vaccine 5 04/07/98 Given Meningococcal Conjugate Vaccine 6/3/08 Given tetanus-diphtheria toxoids (Td) 6 01/27/01 Given [...] received at [facility] on [facility] in [facility] 2Admin Note: VIS GIVEN 3Admin Note: [...] aware of [facility] services. 2Problem added by Discern Expert Social History Social History Type Response Smoking Status Former smoker, quit more than 30 days ago entered on: 08/10/18 Sex Female
--- OUTSIDE RECORDS SUMMARY | 2023-06-22 13:53 | XMS_ITS | Continuity of Care Document ---
Author Organization [facility] Address [address] [address]- Care Team Providers Care Electrician Locomotive Name Role Phone Not on Staff, PCP Primary Care Physician Unavail able [facility] Date[facility]s): 05/29/22 - 09/04/22 [facility] and [address] [address]- Attending Physician: Not on Staff, Attending MD Admitting Physician: Cecilia CARDOZO, Marcy Almendarez Referring Physician: Jarvis CAMARILLO POLICE SPECIALIST, Sy Alonzo Allergies, Adverse Reactions, Alerts Substance [...] vaccine, inactivated 03/16/07 Give n SARS-CoV-2 mRNA (acgcrgn-ibjx-ipuja) vax 07/02/21 Recorded SARS-CoV-2 mRNA (nrhevzv-yvtv-gstyu) vax 04/29/21 Recorded Meningococcal Polysaccharide Vaccine 09/07/12 [...] 03/07/92 G iven 1Result Comment: received at [facility] on [facility] 2Admin Note: VIS GIVEN 3Admin Note: [...] 08/20/22 13:48:00 EDT, Route to Pharmacy Electronically, [facility]/pharmacy #[id number], Partial fill upon patient request if the prescriptio... Start Date: 08/20/22 Status: Ordered ibuprofen 800 mg oral tablet 800 mg, 1, tablet, By Mouth, 3 times a day, # 90 tablet, Refills 0, Tot. Refills 0, Maintenance, 08/20/22 13:48:00 EDT, Route to Pharmacy Electronically, [facility]/pharmacy #[id number], Partial fill upon patientrequest [...] 07/11/22 10:28:00 EDT, Route to Pharmacy Electronically, [facility]/pharmacy #[id number], Partial fill upon patient request if the prescription is for a schedule II opioid drug... Start Date: 07/11/22 Status: Ordered Tylenol 325 mg oral capsule 2 capsule = 650 mg, By Mouth, Every 4 hours, PRN as needed for pain, # 120 capsule, 0 Refills, Maintenance, 07/11/22 10:24:00 EDT, Capsule, [facility]/pharmacy #[id number], Partial fill upon patient [...] with services. Pt made aware of [facility] services. Social History Social History Type Response Smoking Status Former smoker, quit more than 30 days ago entered on: 04/14/22 Sex Patient Care team information Care Team Personnel Name: Not on Staff, PCP Position: [facility] Physician (General Medicine) Member Role: PCP Care Team Related Persons Name: RACHEAL TA Address: home [address] [address] Name: CRISTAL VICENTE Address: [address] Address: [address] [place] [address] [place] Name: GUILLAUME LYN Address: [address] Address: home [address] [place] [address] [place] Name: ALISSA CARDOSO Address: home [address] [place] [address]
--- OUTSIDE RECORDS SUMMARY | 2023-06-22 13:53 | XMS_ITS | Continuity of Care Document ---
Author Organization [facility] Address [address] [place] [address]- Care Team Providers Care Warehouse Freight Handler Name Role Phone Dayana-Geoffrey CARDOZO, Mara Primary Care Physicia n Encounter [facility] Date(s): 10/11/20 - 12/01/[address] [address] Attending Physician: Not on Staff, Attending MD [...] G iven 1Result Comment: received at [facility] on [facility] in [facility] 2Admin Note: VIS GIVEN 3Admin [...] services. Pt made aware of [facility] services. 2Problem added by Discern Expert Social History Social History Type Response Smoking Status Former smoker, quit more than 30 days ago entered on: 08/10/18 Sex Female
--- OUTSIDE RECORDS SUMMARY | 2023-06-22 13:53 | XMS_ITS | Continuity of Care Document ---
Author Organization [facility] Address [address] [address]- Care Team Providers Care Work Adjustment Instructor Name Role Phone Not on Staff, PCP Primary Care Physician Unavail able [facility]s): 04/29/23 - 05/29/23 [facility] [address] [address] Allergies, Adverse Reactions, Alerts [...] vaccine, inactivated 03/16/07 Give n SARS-CoV-2 mRNA (ornalvb-lshv-vclzk) vax 07/02/21 Recorded SARS-CoV-2 mRNA (sobkkhb-jinw-iofkh) vax 04/29/21 Recorded Meningococcal Polysaccharide Vaccine 09/07/12 [...] 1Result Comment: received at [facility] on [facility] 2Admin Note: VIS GIVEN 3Admin Note: VIS [...] EDT, Route to Pharmacy Electronically, [facility]/pharmacy #[id number], Partial fill upon patient request if the prescriptio... Start Date: 08/20/22 Status: Ordered ibuprofen 800 mg oral tablet 800 mg, 1, tablet, By Mouth, 3 times a day, # 90 tablet, Refills 0, Tot. Refills 0, Maintenance, 08/20/22 13:48:00 EDT, Route to Pharmacy Electronically, [facility]/pharmacy #[id number], Partial fill upon patientrequest if the [...] Refills, Maintenance, 08/20/22 13:47:00 EDT, ER Tablet, [facility]/pharmacy #[id number], Partial fill upon patient request if the prescription is for a schedule II opioid drug., 150, cm, 08/20/22 13:33:00 EDT, Heig... Start Date: 08/20/22 Status: Ordered NIFEdipine 30 mg oral tablet, extended release 30 mg, 1, tablet, By Mouth, Daily, # 30 tablet, Refills 0, Tot. Refills 0, Maintenance, 07/11/22 10:28:00 EDT, Route to Pharmacy Electronically, [facility]/pharmacy #[id number], Partial fill upon patient request if the prescription is for a schedule II opioid drug... Start Date: 07/11/22 Status: Ordered Tylenol 325 mg oral capsule 2 capsule = 650 mg, By Mouth, Every 4 hours, PRN as needed for pain, # 120 capsule, 0 Refills, Maintenance, 07/11/22 10:24:00 EDT, Capsule, [facility]/pharmacy #[id number], Partial fill upon patient request if [...] engaged with services. Pt made aware of [facility] services. Social History Social History Type Response Smoking Status Former smoker, quit more than 30 days ago entered on: 04/14/22 Sex Patient Care team information Care Team Personnel Name: Not on Staff, PCP Position: [facility] Physician (General Medicine) Member Role: PCP Care Team Related Persons Name: RACHEAL TA Address: home [address] [facility] [address] [place] [address] Name: CRISTAL VICENTE Address: [address] Address: [address] [place] [address] [place] Name: GUILLAUME LYN Address: [address] Address: [address] [facility] [address] [place] [address] [place] Name: ALISSA CARDOSO Address: home [address] [place] [address]
--- OUTSIDE RECORDS SUMMARY | 2023-06-22 13:54 | XMS_ITS | Continuity of Care Document ---
Author Organization [facility] Address [address] [place] [address]- Care Team Providers Care Machine Bunch Maker Name Role Phone [place]-Geoffrey CARDOZO, Mara Primary Care Physicia n [facility] Date[facility]s): 09/18/20 - 10/18/[address] [address]- Allergies, Adverse Reactions, Alerts Substance Reaction Severity [...] 03/07/92 G iven 1Result Comment: received at [facility] in [facility] 2Admin Note: [...]
--- OUTSIDE RECORDS SUMMARY | 2023-06-22 13:54 | XMS_ITS | Continuity of Care Document ---
Author Organization [facility] Address [address] [place] [address]- Care Team Providers Care Supervisor Tank Cleaning Name Role Phone [place]-Geoffrey CARDOZO, Mara Primary Care Physicia n [facility] Date[facility]s): 11/07/19 - 12/07/19 [facility] [address] [address]- [facility] Allergies, Adverse Reactions, Alerts Substance Reaction Severity [...] engaged with services. Pt made aware of [facility] services. 2Problem added by Discern Expert Social History Social History Type Response Smoking Status Former smoker, quit more than 30 days ago entered on: 08/10/18 Sex Female
--- OUTSIDE RECORDS SUMMARY | 2023-06-22 13:54 | XMS_ITS | Continuity of Care Document ---
Author Organization [facility] Address [address] [place] [address]- Care Team Providers Care Piano Teacher Name Role Phone Dayana-Geoffrey CARDOZO, Mara Primary Care Physicia n [facility] Date(s): 03/06/22 - 03/06/[address] [address]- Discharge Disposition: A-D/C Home Attending Physician: Emanuel Sousa MD Admitting Physician: Emanuel Sousa MD Referring Physician: Not on Staff, Referring MD Allergies, Adverse Reactions, Alerts No Known [...] 03/07/92 G iven 1Result Comment: received at [facility] on [facility] in [facility] 2Admin Note: [...] 23Admin Note: HIB 24Admin Note: HIB Medications cephalexin monohydrate 500 mg oral capsule 1 capsule = 500 mg, By Mouth, 4 times a day, for 7 days, # 28 capsule, 0 Refills, Acute 03/13/22 15:26:00 EST, 03/06/22 15:26:00 EST, [facility]aps[facility], [id number], Partial fill upon patient request ifthe prescription is for a schedule II opioid drug.,... Start Date: 03/06/22 Stop Date: 03/13/22 Status: Ordered Problem List Condition Confirmation Course [...] engaged with services. Pt made aware of [facility] services. 2Problem added by Discern Expert Vital Signs Most recent to oldest [Reference Range]: 1 2 3 Oxygen Saturation [94-100 %] 98 % (03/06/22 3:55 PM) 99 % (03/06/22 12:33 PM) 100 % (03/06/22 11:46 AM) Pulse Rate [55-90 bpm] 94 bpm *H* (03/06/22 3:55 PM) 81 bpm (03/06/22 12:33 PM) 89 bpm (03/06/22 11:46 AM) Blood Pressure [90-138/55-84 mm Hg] 136/95mm Hg (03/06/22 3:55 PM) 145/88mm Hg *H* (03/06/22 12:33 PM) 145/97mm Hg *H* (03/06/22 11:46 AM) Respiratory Rate [16-30 br/min] 16 br/min (03/06/22 3:55 PM) 16 br/min (03/06/22 12:33 PM) 20 br/min (03/06/22 11:46 AM) Temperature [96.8-100.4 DegF] 98.2 DegF (03/06/22 12:33 PM) 98.2 DegF (03/06/22 11:46 AM) Mode of Delivery (Oxygen) Room air (03/06/22 3:55 PM) Room air (03/06/22 12:33 PM) Room air (03/06/22 11:46 AM) Blood pressure sites Arm, left (03/06/22 3:55 PM) Arm, left (03/06/22 12:33 PM) Arm, left (03/06/22 11:46 AM) Temperature Route Oral (03/06/22 12:33 PM) Oral (03/06/22 11:46 AM) Social History Social History Type Response Smoking Status Former smoker, quit more than 30 days ago entered on: 08/10/18 Sex Female EKG study * Event Display: ECG 12-Lead Authored Date: Please click on pdf link to open report * Event Display: ECG 12-Lead Authored Date: Ventricular Rate: 77 BPM Atrial Rate: 77 BPM P-R Interval: 124 ms QRS Duration: 88 ms Q-T Interval: 380 ms QTC Calculation(Bazett): 430 ms P [place]: 39 degrees R [place]: -6 degrees T [place]: 19 degrees Normal sinus rhythm Normal ECG When compared with ECG of 02-SEP-2010 09:51, No significant change was found Confirmed by RUTH LUNDBERG ([id number]) on 03/06/2022 3:00:32 PM Warriors Mark: RUTH LUNDBERG Note * Stacia Sims MD: PERFORM Event Display: Patient Education Leaflets Authored Date: [id number] Uncertain Causes of Chest Pain ?? [id number] Uncertain Causes of Chest Pain Chest pain can happen for a number of reasons. Sometimes the cause can't be determined. If your??condition does not seem serious, and your pain does not appear to be coming from your heart, your healthcare provider may recommend watching it closely. Sometimes the signs of a serious problem take more time to appear. Many problems not related to your heart can cause chest pain. These include: ??? Musculoskeletal. Costochondritis is an inflammation of the tissues around the ribs that can occur from trauma or overuse injuries, or a strain of the muscles of the chest wall. ??? Respiratory. Pneumonia, collapsed lung (pneumothorax), or inflammation of the lining of the chest and lungs (pleurisy). ??? Gastrointestinal. Esophageal reflux, heartburn, ulcers, or gallbladder disease. ??? Anxiety and panic disorders ??? Nerve compression and inflammation ??? Rare problems such as aortic aneurysm or aortic dissection (a swelling of the large artery coming out of the heart or a tear in the wall of the artery), or pulmonary embolism (a blood clot in the lungs). Home care After your visit, follow these recommendations: ??? Rest today and avoid strenuous activity. ??? Take any prescribed medicine as directed. ??? Be aware of any recurrent chest pain and notice any changes ?? Follow-up care Follow up with your healthcare provider if you don't start to feel better within 24 hours, or as advised. ?? Call 911 Call 911 if any of these occur: ??? A change in the type of pain: if it feels different, becomes more severe, lasts longer, or begins to spread into your shoulder, arm, neck, jaw or back ??? Shortness of breath or increased pain with breathing ??? Weakness, dizziness, or fainting ??? Rapid heartbeat ??? Crushing sensation in your chest ??? Coughing up more than a small amount of blood. ?? When to seek medical advice Call your healthcare provider right away if any of the following occur: ??? Cough with dark coloredsputum (phlegm) or small amount of blood ??? Fever of 100.4??F??(38??C) or higher, or as directed by your healthcare provider ??? Swelling, pain or redness in one leg ?? Last Reviewed Date: 2021 ?? [id number] The [employer]. All rights reserved. This information is not intended as a substitute for professional medical care. Always follow your healthcare professional's instructions. ?? Patient Care team information Care Team Personnel Name: Mara Rodgers MD Position: [facility] Primary Care Physician Member Role: PCP Address: Address: [address] [place] [address]- Name: Gregoria Harris Position: [facility] ED TA [facility] Member Role: Foreign Exchange Clerk Name: Jihan Reinoso RN Position: [facility] ED RN W/OE and Tasks Member Role: Patient Care Provider Name: Emanuel Sousa MD Position: [facility] Resident Member Role: Admitting Physician Address: Address: [address] [place] [address]- Name: Stacia Sims MD Position: [facility] Resident Member Role: ED Resident Address: Address: [address] [place] [address]- Care Team Related Persons Name: RACHEAL TA Address: home [address] [address] Name: CRISTAL VICENTE Address: [address] Address: [address] [place] [address] [place] Name: ALISSA CARDOSO Address: home [address] [place] [address]
--- OUTSIDE RECORDS SUMMARY | 2023-06-22 13:54 | XMS_ITS | Continuity of Care Document ---
Author Organization [facility] Pako Gutierres n's [facility] Address [address] [facility], [address] [place] [address]- Care Team Providers Care Slate Roofer Helper Name Role Phone Not on Staff, PCP Primary Care Physician Unavail able Encounter [facility] Date(s): 07/08/22 - 08/07/22 [facility] Pako Dangs [facility] [address] [place] [address]- Attending Physician: Isaías Paredes Admitting Physician: AdmIsaías austin Referring Physician: Admtr Ar8 Allergies, Adverse Reactions, Alerts Substance Reaction Severity [...] vaccine, inactivated 03/16/07 Give n SARS-CoV-2 mRNA (agmfdxs-jmtc-teedk) vax 07/02/21 Recorded SARS-CoV-2 mRNA (epnwuzv-hawt-wblhz) vax 04/29/21 Recorded Meningococcal Polysaccharide Vaccine 09/07/12 [...] received at [facility] on [facility] 2Admin Note: VIS GIVEN 3Admin [...] 10:28:00 EDT, Route to Pharmacy Electronically, [facility]/pharmacy #[id number], Partial fill upon patient [...] services. Pt made aware of [facility] services. Social History Social History Type Response Smoking Status Former smoker, quit more than 30 days ago entered on: 04/14/22 Sex Patient Care team information Care Team Personnel Name: Not on Staff, PCP Position: S Physician (General Medicine) Member Role: PCP Care Team Related Persons Name: RACHEAL TA Address: [address] [address] Name: CRISTAL VICENTE Address: [address] Address: [address] [place] [address] [place] Name: GUILLAUME LYN Address: [address] Address: [address] [place] [address] [place] Name: ALISSA CARDOSO Address: home [address] [place] [address]
--- OUTSIDE RECORDS SUMMARY | 2023-06-22 13:54 | XMS_ITS | Continuity of Care Document ---
Author Organization [facility] Address [address] [address]- Care Team Providers Care Muffler Installer Name Role Phone Not on Staff, PCP Primary Care Physician Unavail able [facility] 07[facility]22 - 08/30/22 [facility] and [facility] [address] [place] [address]- Allergies, Adverse Reactions, Alerts Substance Reaction Severity [...] vaccine, inactivated 03/16/07 Give n SARS-CoV-2 mRNA (tcyrsmi-wbgk-vmlqf) vax 07/02/21 Recorded SARS-CoV-2 mRNA (radgnvz-cbkm-wqpcj) vax 04/29/21 Recorded Meningococcal Polysaccharide Vaccine 09/07/12 Give n influ virus vac, H1N1, live(oldterm) 2 02/07/09 Gi oralia Influenza Inactive (IM) (oldterm) 3 11/21/08 Given Human Papillomavirus Vaccine 4 9/15/09 Given Human Papillomavirus Vaccine 09/01/08 Given Human [...] G iven 1Result Comment: received at [facility] on [facility] in [facility] 2Admin Note: VIS GIVEN 3Admin Note: [...] 08/20/22 13:48:00 EDT, Route to Pharmacy Electronically, [facility]/pharmacy #[id number], Partial fill upon patient request if the prescriptio... Start Date: 08/20/22 Status: Ordered ibuprofen 800 mg oral tablet 800 mg, 1, tablet, By Mouth, 3 times a day, # 90 tablet, Refills 0, Tot. Refills 0, Maintenance, 08/20/22 13:48:00 EDT, Route to Pharmacy Electronically, [facility]/pharmacy #[id number], Partial fill upon patientrequest if [...] 10:28:00 EDT, Route to Pharmacy Electronically, [facility]/pharmacy #[id number], Partial fill upon patient request [...] engaged with services. Pt made aware of [facility] services. Social History Social History Type Response Smoking Status Former smoker, quit more than 30 days ago entered on: 04/14/22 Sex Patient Care team information Care Team Personnel Name: Not on Staff, PCP Position: [facility] Physician (General Medicine) Member Role: PCP Care Team Related Persons Name: RACHEAL TA Address: [address] [address] Name: CRISTAL VICENTE Address: [address] Address: [address] [place] [address] [place] Name: GUILLAUME LYN Address: [address] Address: home [address] [place] [address] [place] Name: ALISSA CARDOSO Address: home [address] [place] [address]
--- OUTSIDE RECORDS SUMMARY | 2023-06-22 13:54 | XMS_ITS | Continuity of Care Document ---
Author Organization [facility] Address [address] [place] [address]- Care Team Providers Care Marine Technician Name Role Phone Not on Staff, PCP Primary Care Physician Unavail able [facility]): 08/20/22 - 10/22/22 [facility] and [address] [address]- Attending Physician: Not on Staff, Attending MD Referring Physician: Jero CAMARILLO, Reggie Linares Allergies, Adverse Reactions, Alerts Substance Reaction Severity [...] vaccine, inactivated 03/16/07 Give n SARS-CoV-2 mRNA (leifhlf-jrbw-wiswj) vax 07/02/21 Recorded SARS-CoV-2 mRNA (etxshxi-lclp-rmbos) vax 04/29/21 Recorded Meningococcal Polysaccharide Vaccine 09/07/12 [...] G iven 1Result Comment: received at [facility] on [facility] 2Admin Note: VIS GIVEN 3Admin Note: VIS [...] 08/20/22 13:48:00 EDT, Route to Pharmacy Electronically, [facility]/pharmacy #[id number], Partial fill upon patientrequest if the [...] 07/11/22 10:28:00 EDT, Route to Pharmacy Electronically, [facility]/pharmacy #[id number], Partial fill upon patient request if the prescription is for a schedule II opioid drug... Start Date: 07/11/22 Status: Ordered Tylenol 325 mg oral capsule 2 capsule = 650 mg, By Mouth, Every 4 hours, PRN as needed for pain, # 120 capsule, 0 Refills, Maintenance, 07/11/22 10:24:00 EDT, Capsule, [facility]/pharmacy #[id number], Partial fill upon patient request if [...] with services. Pt made aware of [facility] services. Social History Social History Type Response Smoking Status Former smoker, quit more than 30 days ago entered on: 04/14/22 Sex Patient Care team information Care Team Personnel Name: Not on Staff, PCP Position: [facility] Physician (General Medicine) Member Role: PCP Care Team Related Persons Name: RACHEAL TA Address: [address] [address] Name: CRISTAL VICENTE Address: [address] Address: [address] [place] [address] [place] Name: GUILLAUME LYN Address: [address] Address: home [address] [place] [address] [place] Name: ALISSA CARDOSO Address: home [address] [place] [address]
--- OUTSIDE RECORDS SUMMARY | 2023-06-22 13:54 | XMS_ITS | Continuity of Care Document ---
Author Organization [facility] Address [address] [address]- Care Team Providers Care Escalator Attendant Name Role Phone Not on Staff, PCP Primary Care Physician Unavail able [facility](s): 05/29/22 - 08/21/22 [facility] and [address] [address]- Attending Physician: Not on Staff, Attending MD Admitting Physician: Cecilia CARDOZO, Marcy Almendarez Referring Physician: Jarvis CAMARILLO PREDICTIVE MAINTENANCE SPECIALIST, Sy Alonzo Allergies, Adverse Reactions, Alerts [...] vaccine, inactivated 03/16/07 Give n SARS-CoV-2 mRNA (ccdovce-peyw-sfzzm) vax 07/02/21 Recorded SARS-CoV-2 mRNA (sficlbi-cqqk-niupk) vax 04/29/21 Recorded Meningococcal Polysaccharide Vaccine 09/07/12 [...] 03/07/92 G iven 1Result Comment: received at [facility] on [facility] 2Admin Note: VIS GIVEN 3Admin [...] 08/20/22 13:48:00 EDT, Route to Pharmacy Electronically, [facility]/pharmacy #[id number], Partial fill upon patient request if the prescriptio... Start Date: 08/20/22 Status: Ordered ibuprofen 800 mg oral tablet 800 mg, 1, tablet, By Mouth, 3 times a day, # 90 tablet, Refills 0, Tot. Refills 0, Maintenance, 08/20/22 13:48:00 EDT, Route to Pharmacy Electronically, [facility]/pharmacy #[id number], Partial fill upon patientrequest if the [...] 07/11/22 10:28:00 EDT, Route to Pharmacy Electronically, [facility]/pharmacy #[id number], Partial fill upon patient request if the prescription is for a schedule II opioid drug... Start Date: 07/11/22 Status: Ordered Tylenol 325 mg oral capsule 2 capsule = 650 mg, By Mouth, Every 4 hours, PRN as needed for pain, # 120 capsule, 0 Refills, Maintenance, 07/11/22 10:24:00 EDT, Capsule, [facility]/pharmacy #[id number], Partial fill upon [...] with services. Pt made aware of [facility] services. Social History Social History Type Response Smoking Status Former smoker, quit more than 30 days ago entered on: 04/14/22 Sex Patient Care team information Care Team Personnel Name: Not on Staff, PCP Position: [facility] Physician (General Medicine) Member Role: PCP Care Team Related Persons Name: RACHEAL TA Address: [address] [address] Name: CRISTAL VICENTE Address: [address] Address: [address] [place] [address] [place] Name: GUILLAUME LYN Address: [address] Address: home [address] [place] [address] [place] Name: ALISSA CARDOSO Address: home [address] [place] [address]
--- OUTSIDE RECORDS SUMMARY | 2023-06-22 13:54 | XMS_ITS | Continuity of Care Document ---
Author Organization [facility] Address [address] [place] [address]- Care Team Providers Care Armor Senior Sergeant Name Role Phone Dayana-Geoffrey CARDOZO, Mara Primary Care Physicia n [facility]s): 11/30/18 - 03/30/[address] [address]- [facility] Attending Physician: Not on Staff, Attending MD [...] give 325mg per patient preference and re-dose [id number] within 4 hours, if needed. Patient should [...] of [facility] services. 2Problem added by Discern Expert Social History Social History Type Response Smoking Status Former smoker, quit more than 30 days ago entered on: 08/10/18 Sex
--- OUTSIDE RECORDS SUMMARY | 2023-06-22 13:54 | XMS_ITS | Continuity of Care Document ---
Author Organization [facility] Address [address] [place] [address]- Care Team Providers Care Fence Installer Foreman Name Role Phone Not on Staff, PCP Primary Care Physician Unavail able [facility](s): 07/10/22 - 08/16/22 [facility] and [address] [address]- Attending Physician: Not on Staff, Attending MD Referring Physician: Jarvis CAMARILLO SUPERVISOR FRAME SAMPLE AND PATTERN, Sy Alonzo Allergies, Adverse Reactions, Alerts Substance [...] vaccine, inactivated 03/16/07 Give n SARS-CoV-2 mRNA (niutewg-fnnc-viwxr) vax 07/02/21 Recorded SARS-CoV-2 mRNA (tsmwfxb-pspl-sykph) vax 04/29/21 Recorded Meningococcal Polysaccharide Vaccine 09/07/12 [...] 03/07/92 G iven 1Result Comment: received at [facility] on [facility] 2Admin Note: VIS GIVEN 3Admin [...] 07/11/22 10:28:00 EDT, Route to Pharmacy Electronically, [facility]/pharmacy #[id number], Partial fill upon patient request [...] aware of [facility] services. Social History Social History Type Response Smoking Status Former smoker, quit more than 30 days ago entered on: 04/14/22 Sex Patient Care team information Care Team Personnel Name: Not on Staff, PCP Position: S Physician (General Medicine) Member Role: PCP Care Team Related Persons Name: CELYRACHEAL Escalera Address: home [address] [address] Name: CRISTAL VICENTE Address: [address] Address: [address] [place] [address] [place] Name: GUILLAUME LYN Address: [address] Address: home [address] [place] [address] [place] Name: ALISSA CARDOSO Address: home [address] [place] [address]
--- OUTSIDE RECORDS SUMMARY | 2023-06-22 13:54 | XMS_ITS | Continuity of Care Document ---
Author Organization [facility] Address [address] [place] [address]- Care Team Providers Care Racing Driver Name Role Phone Not on Staff, PCP Primary Care Physician Unavail able [facility]): 07/02/22 - 08/01/22 [facility] and [address] [address] Allergies, Adverse Reactions, Alerts Substance Reaction [...] vaccine, inactivated 03/16/07 Give n SARS-CoV-2 mRNA (cncnyxp-ujne-vqlpz) vax 07/02/21 Recorded SARS-CoV-2 mRNA (ufopblj-qjgu-ypdmk) vax 04/29/21 Recorded Meningococcal Polysaccharide Vaccine 09/07/12 [...] 03/07/92 G iven 1Result Comment: received at [facility] on [facility] 2Admin Note: VIS GIVEN 3Admin [...] 07/11/22 10:28:00 EDT, Route to Pharmacy Electronically, [facility]/pharmacy #[id number], Partial fill upon patient request if the prescription is for a schedule II opioid drug... Start Date: 07/11/22 Status: Ordered Tylenol 325 mg oral capsule 2 capsule = 650 mg, By Mouth, Every 4 hours, PRN as needed for pain, # 120 capsule, 0 Refills, Maintenance, 07/11/22 10:24:00 EDT, Capsule, [facility]/pharmacy #[id number], Partial fill upon patient [...] aware of [facility] services. Social History Social History Type Response Smoking Status Former smoker, quit more than 30 days ago entered on: 04/14/22 Sex Patient Care team information Care Team Personnel Name: Not on Staff, PCP Position: [facility] Physician (General Medicine) Member Role: PCP Care Team Related Persons Name: RACHEAL TA Address: home [address] [address] Name: CRISTAL VICENTE Address: [address] Address: [address] [place] [address] [place] Name: GUILLAUME LYN Address: [address] Address: home [address] [place] [address] [place] Name: ALISSA CARDOSO Address: home [address] [place] [address]
--- OUTSIDE RECORDS SUMMARY | 2023-06-22 13:54 | XMS_ITS | Continuity of Care Document ---
Author Organization [facility] ter Address [address] [place] [address]- Care Team Providers Care Customer Service Driver Name Role Phone Dayana-Geoffrey CARDOZO, Mara Primary Care Physicia n [facility](s[facility] 05/22/20 - 07/14/[address] [address] Attending Physician: Moira Epps CNM Admitting Physician: Moira Epps CNM Referring Physician: Moira Epps CNM Allergies, Adverse Reactions, Alerts Substance Reaction [...] G iven 1Result Comment: received at [facility] on [facility] in [facility] 2Admin Note: VIS GIVEN 3Admin Note: [...]
--- OUTSIDE RECORDS SUMMARY | 2023-06-22 13:54 | XMS_ITS | Continuity of Care Document ---
Author Organization [facility] Address [address] [place] [address]- Care Team Providers Care Sand Screener Name Role Phone Sundown-Geoffrey CARDOZO, Mara Primary Care Physicia n [facility]counter [facility] Date(s): 05/18/20 - 06/17/20 [facility] [address] [place] [address]- Allergies, Adverse Reactions, Alerts Substance Reaction Severity [...] G iven 1Result Comment: received at [facility] in [facility] 2Admin [...] engaged with services. Pt made aware of [facility] services. 2Problem added by Discern Expert Social History Social History Type Response Smoking Status Former smoker, quit more than 30 days ago entered on: 08/10/18 Sex Female
--- OUTSIDE RECORDS SUMMARY | 2023-06-22 13:54 | XMS_ITS | Continuity of Care Document ---
Author Organization [facility] Address [address] [place] [address]- Care Team Providers Care Head Of Academic Technology Name Role Phone Allen-Geoffrey CARDOZO, Mara Primary Care Physicia n [facility]s): 04/26/21 - 06/08/[address] [address]- Attending Physician: Not on Staff, Attending MD [...] 03/07/92 G iven 1Result Comment: received at [facility] on [facility] in [facility] 2Admin [...] aware of [facility] services. 2Problem added by Discern Expert Social History Social History Type Response Smoking Status Former smoker, quit more than 30 days ago entered on: 08/10/18 Sex Female
--- OUTSIDE RECORDS SUMMARY | 2023-06-22 13:54 | XMS_ITS | Continuity of Care Document ---
Author Organization [facility] Address [address] [place] [address]- Care Team Providers Care Data Warehousing Engineer Name Role Phone Not on Staff, PCP Primary Care Physician Unavail able [facility]s): 04/23/22 - 05/23/22 [facility] and [address] [address] Allergies, Adverse Reactions, Alerts [...] vaccine, inactivated 03/16/07 Give n SARS-CoV-2 mRNA (hioktwd-jnhf-rpojw) vax 07/02/21 Recorded SARS-CoV-2 mRNA (eaftacy-nkvp-dlrjt) vax 04/29/21 Recorded Meningococcal Polysaccharide Vaccine 09/07/12 [...] received at [facility] on [facility] 2Admin Note: VIS GIVEN 3Admin Note: [...] prescription is for a schedule II opioid drCorina. Start Date: 04/16/22 Status: Ordered Multivitamins with Folic Acid 1 mg oral capsule 1 capsule = 1 mg, By Mouth, Daily, # 90 capsule, 6 Refills, Maintenance, 05/05/22 14:24:00 EST, [facility]/pharmacy #[id number], Partial fill [...] engaged with services. Pt made aware of [facility] services. 2Problem added by Discern Expert Social History Social History Type Response Smoking Status Former smoker, quit more than 30 days ago entered on: 04/14/22 Sex Female Patient Care team information Care Team Personnel Name: Not on Staff, PCP Position: [facility] Physician (General Medicine) Member Role: PCP Care Team Related Persons Name: RACHEAL TA Address: home [address] [place] [address] Name: CRISTAL VICENTE Address: [address] Address: home [address] [place] [address] Name: JUAN JHAVERI Address: [address] [address]
--- OUTSIDE RECORDS SUMMARY | 2023-06-22 13:54 | XMS_ITS | Continuity of Care Document ---
Author Organization [facility] Address [address] [place] [address]- Care Team Providers Care Calciner Operator Name Role Phone Not on Staff, PCP Primary Care Physician Unavail able [facility]s): 05/13/22 - 06/22/22 [facility] and [address] [address] Attending Physician: Not on Staff, Attending [...] vaccine, inactivated 03/16/07 Give n SARS-CoV-2 mRNA (fhxljgt-orcl-tppbd) vax 07/02/21 Recorded SARS-CoV-2 mRNA (puekpqa-lpnq-fyxir) vax 04/29/21 Recorded Meningococcal Polysaccharide Vaccine 09/07/12 [...] 03/07/92 G iven 1Result Comment: received at [facility] on [facility] 2Admin Note: VIS GIVEN 3Admin Note: VIS [...] 04/16/22 13:05:00 EST, Route to Pharmacy Electronically, [facility]/pharmacy #[id number], Partial fill upon patient request [...] 0 Refills, Maintenance, 06/11/22 14:50:00 EDT, Tablet, [facility]/pharmacy #[id number], Partial fill upon patient request [...] Personnel Name: Not on Staff, PCP Position: [facility] Physician (General Medicine) Member Role: PCP Care Team Related Persons Name: RACHEAL TA Address: [address] [address] Name: CRISTAL VICENTE Address: [address] Address: [address] [place] [address] Name: ALISSA CARDOSO Address: [address] [place] [address]
--- OUTSIDE RECORDS SUMMARY | 2023-06-22 13:54 | XMS_ITS | Continuity of Care Document ---
Author Organization [facility] Address [address] [place] [address]- Care Team Providers Care Senior Policy Associate Name Role Phone Dayana-Geoffrey CARDOZO, Mara Primary Care Physicia n En[place] [facility] Date(s): 11/01/20 - 12/01/[address] [address] Attending Physician: Admnorman, Isaías Admitting Physician: Admtr, [id number] Referring Physician: Admtr, [id number] Allergies, Adverse Reactions, Alerts Substance Reaction [...] 03/07/92 G iven 1Result Comment: received at [facility] 2Admin Note: VIS GIVEN 3Admin Note: [...]
--- OUTSIDE RECORDS SUMMARY | 2023-06-22 13:54 | XMS_ITS | Continuity of Care Document ---
Author Organization [facility] Address [address] [place] [address]- Care Team Providers Care Senior Web Developer Name Role Phone Not on Staff, PCP Primary Care Physician Unavail able [facility](s): 07/10/22 - 08/29/22 [facility] and [address] [address]- Attending Physician: Not on Staff, Attending MD Referring Physician: Jarvis CAMARILLO NYLON MENDER, Sy Alonzo Allergies, Adverse Reactions, Alerts Substance [...] vaccine, inactivated 03/16/07 Give n SARS-CoV-2 mRNA (zzigfas-glet-wlzjd) vax 07/02/21 Recorded SARS-CoV-2 mRNA (bejmfhs-ntuq-vdwbu) vax 04/29/21 Recorded Meningococcal Polysaccharide Vaccine 09/07/12 [...] 03/07/92 G iven 1Result Comment: received at [facility] on [facility] 2Admin Note: VIS GIVEN 3Admin Note: VIS [...] 07/11/22 10:28:00 EDT, Route to Pharmacy Electronically, [facility]/pharmacy #[id number], Partial fill upon patient request if the prescription is for a schedule II opioid drug... Start Date: 07/11/22 Status: Ordered Tylenol 325 mg oral capsule 2 capsule = 650 mg, By Mouth, Every 4 hours, PRN as needed for pain, # 120 capsule, 0 Refills, Maintenance, 07/11/22 10:24:00 EDT, Capsule, [facility]/pharmacy #[id number], Partial fill upon [...] with services. Pt made aware of [facility] services. Social History Social History Type Response Smoking Status Former smoker, quit more than 30 days ago entered on: 04/14/22 Sex Patient Care team information Care Team Personnel Name: Not on Staff, PCP Position: [facility] Physician (General Medicine) Member Role: PCP Care Team Related Persons Name: RACHEAL TA Address: home [address] [address] Name: CRISTAL VICENTE Address: [address] Address: [address] [place] [address] [place] Name: GUILLAUME LYN Address: [address] Address: home [address] [place] [address] [place] Name: ALISSA CARDOSO Address: home [address] [place] [address]
--- OUTSIDE RECORDS SUMMARY | 2023-06-22 13:54 | XMS_ITS | Continuity of Care Document ---
Author Organization [facility] Address [address] [place] [address]- Care Team Providers Care Die Cutter Name Role Phone Dayana-Geoffrey CARDOZO, Mara Primary Care Physicia n Encounter [facility] Date(s): 05/12/19 - 05/22/[address] [address]- [facility] Attending Physician: Isaías Paredes Admitting Physician: Isaías [...] give 325mg per patient preference and re-dose [id number] within 4 hours, if needed. Patient should [...] with services. Pt made aware of [facility] services. 2Problem added by Discern Expert Social History Social History Type Response Smoking Status Former smoker, quit more than 30 days ago entered on: 08/10/18 Sex
--- OUTSIDE RECORDS SUMMARY | 2023-06-22 13:54 | XMS_ITS | Continuity of Care Document ---
Author Organization [facility] ter Address [address] [place] [address]- Care Team Providers Care Fabrication Inspector Name Role Phone Dayana-Geoffrey CARDOZO, Mara Primary Care Physicia n [facility]s): 12/30/19 - 03/18/[address] [address]- Attending Physician: Marily Lopez CNM Admitting Physician: Marily Lopez CNM Referring Physician: Marily Lopez CNM Allergies, [...] 03/07/92 G iven 1Result Comment: received at [facility] on [facility] in [facility] 2Admin Note: VIS GIVEN [...] made aware of [facility] services. 2Problem added by Discern Expert Social History Social History Type Response Smoking Status Former smoker, quit more than 30 days ago entered on: 08/10/18 Sex Female
--- OUTSIDE RECORDS SUMMARY | 2023-06-22 13:55 | XMS_ITS | Continuity of Care Document ---
Author Organization [facility] Address [address] [place] [address]- Care Team Providers Care Softball Umpire Name Role Phone [place]-Geoffrey CARDOZO, Mara Primary Care Physicia n En[place] [facility] Date(s): 03/01/19 - 04/03/[address] [address]- [facility] Attending Physician: Not on Staff, Attending MD [...] give 325mg per patient preference and re-dose [id number] within 4 hours, if needed. Patient should [...] made aware of [facility] services. 2Problem added by Discern Expert Social History Social History Type Response Smoking Status Former smoker, quit more than 30 days ago entered on: 08/10/18 Sex
--- OUTSIDE RECORDS SUMMARY | 2023-06-22 13:55 | XMS_ITS | Continuity of Care Document ---
Author Organization [facility] ter Address [address] [place] [id number]- Care Team Providers Care [employer] Senior Officer Name Role Phone Not on Staff, PCP Primary Care Physician Unavail able Encounter [facility] Date(s): 05/28/22 - 05/29/[address] [address] Discharge Disposition: A-D/C Home Attending Physician: Rian Quinteros MD Admitting Physician: Rian Quinteros MD Referring Physician: Rian Quinteros MD Allergies, Adverse Reactions, Alerts Substance Reaction [...] vaccine, inactivated 03/16/07 Give n SARS-CoV-2 mRNA (gjbtohh-pjry-tznjq) vax 07/02/21 Recorded SARS-CoV-2 mRNA (fhryayb-rcwc-ukxhe) vax 04/29/21 Recorded Meningococcal Polysaccharide Vaccine 09/07/12 [...] 03/07/92 G iven 1Result Comment: received at [facility] on [facility] 2Admin Note: VIS GIVEN 3Admin Note: [...] 04/16/22 13:05:00 EST, Route to Pharmacy Electronically, [facility]/pharmacy #[id number], Partial fill upon patient request if the prescription is for a schedule II opioid dr... Start Date: 04/16/22 Status: Ordered Multivitamins with Folic Acid 1 mg oral capsule 1 capsule = 1 mg, By Mouth, Daily, # 90 capsule, 6 Refills, Maintenance, 05/05/22 14:24:00 EST, [facility]/pharmacy #[id number], Partial fill upon patient request [...] opioid drug. Start Date: 05/28/22 Status: Ordered Problem List Condition Confirmation Course [...] engaged with services. Pt made aware of [facility] services. 2Problem added by Discern Expert Vital Signs Most recent to oldest [Reference Range]: 1 Oxygen Saturation [94-100 %] 99 % (05/28/22 10:25 PM) Blood Pressure [90-138/55-84 mm Hg] 132/ 82mm Hg (05/28/22 10:25 PM) Respiratory Rate [16-30 br/min] 20 br/mi n (05/28/22 10:25 PM) Temperature [96.8-100.4 DegF] 98.3 DegF (05/28/22 10:25 PM) Mode of Delivery (Oxygen) Room air (05/28/22 10:25 PM) Blood pressure sites Arm, right (05/28/22 10:25 PM) Temperature Route Oral (05/28/22 10:25 PM) Social History Social History Type Response Smoking Status Former smoker, quit more than 30 days ago entered on: 04/14/22 Sex Female Note * Saida Otto RN: PERFORM Event Display: Discharge/Transfer Note Hospital Authored Date: Nursing Discharge Note Entered On: 05/29/2022 1:50 EDT Performed On: 05/29/2022 1:49 EDT by Saida Otto RN Nursing Discharge Note 2 Discharge Time : 05/29/2022 1:49 EDT Discharge Level of Care at Discharge : Home/Detention/Foster Care Patient Left Unit Via : Ambulatory Patient Accompanied Off Unit with : Other: self DC Instructions Provided & Signed by Pt : Yes Patient Understands D/C Instructions : Yes Patient Instructions Discharge Signed : Yes Did Pt have Specialty Bed or Wound Vac : No Saida Otto RN - 05/29/2022 1:49 EDT * Event Display: Discharge/Transfer Note Hospital Authored Date: * Saida Otto RN: PERFORM Event Display: Patient Education/Instruction Authored Date: [id number] Inpatient Adult Discharge Instructions [address] [address] Name: ADRIANA LYN : 1990 Visit: 05/28/2022 21:49:00 Current Date: 05/29/2022 01:42 Account: [id number] Inpatient Adult Discharge Instructions We would like [...] and their families. Surveys are administered by [employer]. ?? If further treatment with your primary care physician or another doctor is recommended, it is important for you to keep the appointment. Call your primary care physician or return to the Emergency Department immediately if your condition worsens, fails to improve, or new symptoms develop. If you need to find a doctor, you can call [facility] [employer] for a referral at [phone] or toll free at [phone] ([phone]) or log in to [email or web address].. ?? You can view and manage your care through the patient portal or by using a health care librado of your choosing. [employer] is a website that allows you to securely view your medical information including your hospital discharge summary, office visit summaries, medications and follow-up visits. You can also request appointments, renew medications, and request access to your medical information using a health care ilbrado of your choosing, or just ask a question. You can enroll at [email or web address] or register during your next office visit. You have been discharged from [facility], Patient Care Unit: [id number]. If you have any questions regarding these instructions after you leave, please call us and we will be happy to assist you. [facility] Your Care Team Attending Physician Rian Quinteros MD Tests Performed Below is a partial list of the tests performed during your hospitalization. You may have had other tests and procedures not included in this list. Please discuss all test results with your provider. COVID-19, RSV, and Flu A/B, Rapid PCR Primary Care Provider Ana Maria CARDOZO, Mara Advance Directive Health Care Proxy on File No Discharge Vitals Temperature: 98.3 DegF Respiratory Rate: 20 br/min Systolic Blood Pressure: 132 mm Hg Diastolic Blood Pressure: 82 mm Hg Oxygen Saturation: 99 % Studies Pending All tests and labs ordered during this hospital stay have been completed unless listed below. Please discuss all pending results with your provider listed above in these instructions. ?? No incomplete studies found What to do next Instructions From Your Doctor Discharge Orders Scheduled Follow-Up Appointments 2022 2:10 PM EDT ?? With: Jarvis CAMARILLO ACCREDITATION MANAGER, Sy Alonzo Where: [facility] [place] [address]- Thursday 2:15 PM EDT ?? With: Where: [facility] [address] [place] [address]- Thursday 1:40 PM EDT ?? With: Clarissa Wills CNM Where: [facility] Non [address] [address]- Thursday 1:30 PM EDT ?? With: Marj Cisse CNM Where: [facility] Non [address] [address]- You Need to Schedule the Following Appointments Follow Up with??Follow up today as scheduled for routine OB visit When?? Discharge Medications ADRIANA LYN :1990 Visit Date:05/28/2022 Medications: Please continue your medications until treatment is completed or stopped by your provider. Medications not listed below should be discontinued. Discuss any questions related to medications with your provider. What How Much When Instructions Next Dose Unchanged Acetaminophen (Tylenol 325 mg oral capsule) 2 capsule Oral Every 4 hours as needed for as needed for pain Unchanged Amoxicillin (amoxicillin 500 mg oral tablet) 1 tab(s) Oral 3 times a day Duration: 7 Days Unchanged Aspirin (aspirin 81 mg oral tablet, chewable) 2 tab(s) Oral Daily Unchanged Multivitamin, ( Multivitamins with Folic Acid 1 mg oral capsule) 1 capsule Oral Daily Test Results Below is a partial list of the most recent Laboratory test results done prior to this discharge. You may have had other tests and procedures not included in this list. Please discuss all test resultswith your provider. COVID-19, RSV, and Flu A/B, Rapid PCR (05/28/2022) ???Influenza A PCR - NEGATIVE???Influenza B PCR - NEGATIVE???RSV PCR - NEGATIVE???COVID-19 PCR Specimen Source - NASAL???COVID-19 PCR Result - NEGATIVE Allergies (NKA means No Known Allergies) Other Environmental Allergy Problems Active Problems??(13) Anxiety and depression?? BMI 40.0-44.9, adult?? Body mass index 30+ - obesity?? Constipation?? History of gestational hypertension?? History of hemorrhage?? Hx of migraines?? Morbid obesity? Rh negative, (A negative)?? Seasonal allergies?? Severe obesity?? Susceptible to Varicella (non-immune), currently in third trimester?? Education Materials Below is the list of Educational Leaflet Providered with your Discharge Instructions. Viral Upper Respiratory Illness (Adult)?? Middle Ear Infection (Adult)?? Middle Ear Infection (Otitis Media) in Adults?? Kick Counts?? Valuables and Belongings I fully understand and agree that [facility] accepts no responsibility for all my personal [...] encouraged to send valuables and belongings home. ? Other Discharge Information ? Pulmonary Rehab Status?? Pulmonary Rehab Discharge Status?? Respiratory Rate: 20 br/min ? Common Emergency Awareness Tips IS [...] are strongly encouraged to quit. Please call [facility] Link at [phone] or [phone] ([phone]) or log in to [email or web address] for referrals to smoking cessation programs. ?? The National Suicide Prevention Hotline is available 29/09 if you or someone you know needs to find a reason to keep living. By calling 8-392-585-Incuron (1578) you'll be connected to a skilled, trained counselor at a crisis center in your area. INPATIENT DISCHARGE INSTRUCTIONS SIGNATURE ADRIANA QUINONES Location:[facility] Registration Date and Time:05/28/2022 21:49 EDT Primary Care Physician: Ana Maria CARDOZO, Mara, I ADRIANA LYN, have received the above patient education materials/instructions and have verbalized understanding. If ambulance or transport services are being used I further acknowledge being given a choice of service. ?? If you need to contact me, please call me at this number: . Patient/User Experience Designer Name: Patient/User Experience Designer Signature: Relationship to Patient: Witness Name/Signature: Date: * Saida Otto RN: PERFORM, SIGN, VERIFY Event Display: Patient Education Handout Authored Date: [id number] * Saida Otto RN: PERFORM Event Display: Patient Education Leaflets Authored Date: [id number] Viral Upper Respiratory Illness (Adult) ?? [id number] Viral Upper Respiratory Illness (Adult) You have a viral upper respiratory illness (URI), which is another term for the common cold. This viral illness is contagious during the first few days. It's spread through the air by coughing and sneezing. It may also be spread by direct contact (touching the sick person and then touching your owneyes, nose, or mouth). Frequent handwashing will lower risk of spread. Most viral illnesses go awaywithin 7 to 10 days with rest and simple home remedies. Sometimes the illness may last for several weeks. Antibiotics will not kill a virus, and they are generally not prescribed for this condition. Home care ??? If symptoms are severe, rest at home for the first 2 to 3 days or as advised. When you resume activity, don't let yourself get too tired. ??? Don't smoke. If you need help stopping, talk with your healthcare provider. ??? Stay away from cigarette smoke (yours or others???). ??? You may use acetaminophen or ibuprofen to control pain and fever, unless another medicine was prescribed.??Talk with your provider before taking these medicines if you have chronic liver or kidney disease. Also talk with your provider if you've had a stomach ulcer or digestive bleeding, or you take blood-thinning medicines. Never give aspirin to anyone under 18 years of age who is ill with a viral infection or fever. It may cause severe liver or brain damage, or even . ??? Your appetite may be poor, so a light diet is OK. Stay well hydrated by drinking 6 to 8 glasses of fluids per day (water, soft drinks, juices, tea, or soup). Extra fluids will help loosen secretions in the nose and lungs. ??? Gkyv-hhj-oornuxu cold medicines will not shorten the length of time you???re sick. But they may be helpful for cough, sore throat, and nasal and sinus congestion. If you take prescription medicines, ask your healthcare provider or pharmacist which tkbq-hql-vaeyfml medicines are safe to use. Don'tuse decongestants, if you have high blood pressure, without first talking with your healthcare provider. ??? If you are taking other prescribed medicine, contact your healthcare provider before taking any levr-ybf-xyocaxw medicines. ?? Follow-up care Follow up with your healthcare provider, or as advised. ?? When to seek medical advice Call your healthcare provider right away if any of these occur: ??? Cough with lots of colored sputum (mucus) ??? Severe headache; face, neck, or ear pain ??? Difficulty??swallowing??due to throat pain ??? Fever of 100.4??F (38??C) or higher , or as directed by your healthcare provider ?? Call 911 Call 911 if any of these occur: ??? Chest pain, shortness of breath, wheezing, or difficulty breathing ??? Coughing up blood ??? Very severe pain with swallowing, especially if it goes along with a muffled voice ??? Feeling of doom ??? Feeling dizzy, faint, or confused ??? Lips or skin is blue, purple or allan in color ?? Last Reviewed Date: 2021 ?? [employer]. All rights reserved. This information is not intended as a substitute for professional medical care. Always follow your healthcare professional's instructions. ?? * Saida Otto RN: PERFORM Event Display: Patient Education Leaflets Authored Date: [id number] Middle Ear Infection (Adult) ?? [id number] Middle Ear Infection (Adult) You have an infection of the middle ear, the space behind the eardrum. This is also called acute otitis media (AOM). Sometimes it's caused by the common cold. This is because congestion can block theinternal passage (eustachian tube) that drains fluid from the middle ear. When the middle ear fillswith fluid, bacteria can grow there and cause an infection. Oral antibiotics are used to treat this illness, not eardrops. Symptoms often start to improve within 1 to 2 days of treatment. Home care Here are some general care guidelines: ??? Finish all of the antibiotic medicine given, even thoughyou may feel better after the first few days. ??? You may use hccn-tfs-svpndfl medicine, such as acetaminophen or ibuprofen, to control pain and fever unless something else was prescribed. Talk with your healthcare provider before using these medicines if you have chronic liver or kidney disease. Also talk with your provider if you've had a stomach ulcer or digestive tract bleeding. Don't give aspirin to anyone under 18 years of age who is ill or has a fever. It may cause a severe illness called Vicente syndrome, which may result in brain or liver damage. If not treated correctly, it may cause . ?? Follow-up care Follow up with your healthcare provider as advised. If all symptoms haven't gotten better, or if hearing doesn't go back to normal in 2 weeks, you may need further treatment. ?? When to get medical advice Call your healthcare provider right away if any of these occur: ??? Ear pain gets worse or doesn't improve after 3 days of treatment ??? Abnormal drowsiness or confusion ??? Neck pain, stiff neck, orheadache ??? Fluid or blood draining from the ear canal ??? Fever of 100.4??F (38??C) or higher, oras advised? Seizure ?? Last Reviewed Date: 2021 ?? [employer]. All rights reserved. This information is not intended as a substitute for professional medical care. Always follow your healthcare professional's instructions. ?? * Saida Otto RN: PERFORM Event Display: Patient Education Leaflets Authored Date: [id number] Middle Ear Infection (Otitis Media) in Adults ?? [id number] Middle Ear Infection (Otitis Media) in Adults What is a middle ear infection? A middle ear infection occurs behind the eardrum. It is most often caused by a virus or bacteria. Most kids have at least one middle ear infection by the time they are 3 years old. But adults can also get them. ?? What causes middle ear infections? Inflammation in the middle ear most often starts after you???ve had a sore throat, cold, or other upper respiratory problem. The infection spreads to the middle ear and causes fluid buildup behind the eardrum.? What are the symptoms of a middle ear infection? These are the most common symptoms of middle ear infections in adults: ??? Ear pain ??? Feeling of fullness in the ear ??? Fluid draining from the ear ??? Fever ??? Hearing loss These symptoms may look like other conditions or health problems. Always talk with your??healthcare??provider??for a diagnosis. ?? How is a middle ear infection diagnosed? Your healthcare provider will review your health history and do a physical exam. They will check the outer ear and the eardrum using an otoscope. This is a lighted tool that lets the healthcare??provider see inside the ear. A pneumatic otoscope blows a puff of air into the ear to test eardrum movement. When there is fluid or infection in the middle ear, movement is decreased. Your provider may also do a tympanometry. This is a test that directs air and sound to the middle ear. If you have ear infections often, your healthcare provider may suggest having a hearing test. ?? How is a middle ear infection treated? Treatment will depend on your symptoms, age, and general health. It will also depend on how severe the condition is. Treatment may include: ??? Antibiotics ??? Pain relievers ??? Placing small tubes in the eardrum for chronic ear infections? What are possible complications of a middle ear infection? Untreated ear infections can lead to: ??? Infection in other parts of the head ??? Lasting (permanent) hearing loss ??? Speech and language problems ?? Can middle ear infections be prevented? Cold and allergy medicines don't seem to prevent ear infections. And currently there is no vaccine that can prevent the disease. But check with your healthcare??provider and make sure your vaccines are up-to-date. Living in a home where cigarettes are smoked can increase the chances of ear infections. So can living in a home where vaping devices, such as e-cigarettes and electronic nicotine, are used ?? Fernandez points about middle ear infections ??? Middle ear infections can affect both children and adults. ??? Pain and fever can be the most common symptoms. ??? Without treatment, permanent hearing lossmay happen. ??? Take antibiotics as prescribed and finish all of the prescription. This can help prevent antibiotic- resistant infections or incomplete treatment with the infection returning. ??? Keeping your home smoke-free or free of vaping devices can decrease the chances of ear infections. ?? Next steps Tips to help you get the most from a visit to your healthcare provider: ??? Know the reason for your visit and what you want to happen. ??? Before your visit, write down questions you want answered. ??? Bring someone with you to help you ask questions and remember what your provider tells you. ??? At the visit, write down the name of a new diagnosis, and any new medicines, treatments, or tests. Also write down any new instructions your provider gives you. ??? Know why a new medicine or treatment is prescribed, and how it will help you. Also know what the side effects are. ??? Ask if your condition can be treated in other ways. ??? Know why a test or procedure is recommended and what the results could mean. ??? Know what to expect if you do not take the medicine or have the test or procedure. ??? If you have a follow-up appointment, write down the date, time, and purpose for that visit. ??? Know how you can contact your provider if you have questions. ?? Last Reviewed Date: 2020 ?? [id number] [employer]. All rights reserved. This information is not intended as a substitute for professional medical care. Always follow your healthcare professional's instructions. ?? Patient Care team information Care Team Personnel Name: Not on Staff, PCP Position: S Physician (General Medicine) Member Role: PCP Care Team Related Persons Name: CELY, RACHEAL Address: home [address] [address] Name: CRISTAL VICENTE Address: [id number] Address: [address] [place] [address] [place] Name: ALISSA CARDOSO Address: [address] [place] [address]
[2023-06-22 14:39] LABS: MANUAL DIFF FLAG NO
[2023-06-22 14:45] LABS: Basophils Percent Auto 0.4 % (0-2); Eosinophils Absolute Auto 0.1 X10*3/uL (0.0-0.4); Eosinophils Percent Auto 1.1 % (0-4); Hematocrit 44.7 % (37.0-47.0); Hemoglobin 14.9 g/dl (12.0-16.0); Imm Gran Abs Auto 0.02 X10*3/uL (0.00-0.03); Imm Gran Pct Auto 0.2 % (0.0-0.4); Lymphocytes Absolute Auto 2.4 X10*3/uL (1.2-4.9); Lymphocytes Percent Auto 29.2 % (20-40); Mean Corpuscular HGB Conc 33.3 g/dl (31.0-35.0); Mean Corpuscular Hemoglobin 27.6 pg (27.0-33.0); Mean Corpuscular Volume 82.8 fL (80.0-98.0); Mean Platelet Volume 9.2 fL (9.4-12.3); Monocytes Absolute Auto 0.5 X10*3/uL (0.1-1.2); Monocytes Percent Auto 5.9 % (2-11); Neutrophils Absolute Auto 5.1 x10*3/uL (2.0-8.3); Neutrophils Percent Auto 63.2 % (45-73); Platelet Count 326 X10*3/uL (160-400); Red Cell Distribution Width 13.1 % (11.0-16.0); White Blood Count 8.1 X10*3/uL (4.8-10.8)
[2023-06-22 14:55] LABS: Anion Gap 13 (12-20); Blood Urea Nitrogen 9 mg/dL (9-16); Calcium 9.7 mg/dL (8.4-10.2); Carbon Dioxide 23 mmol/L (22-29); Chloride 108 mmol/L (96-108); Creatinine Clr Calc Pharmacy 138.4; Estimated Glomerular Filt Rate > 60; Glucose Random 90 mg/dL (60-115); Potassium 4.2 mmol/L (3.3-5.1); Sodium 140 mmol/L (135-145)
[2023-06-22 15:05] LABS: Troponin-I High Sensitivity < 2.7 ng/L (<3.5-17.0)
[2023-06-22 15:35] VITALS: BP 143/96; PULSE 77; RESP 16; TEMP 36.7; O2SAT 98
[2023-06-22] MEDS: amLODIPine Besylate 2.5 MG TABLET PO (16:22)
[2023-06-22 17:20] VITALS: BP 145/100; PULSE 93; RESP 18; TEMP 36.7; O2SAT 99
== END 2023-06-22 17:22 | disposition home or self-care (01) ==
PROVIDERS: Physician Assistant; Emergency Provider Emergency Medicine
DX: I10 Essential (primary) hypertension (principal); Z87.59 Personal history of other complications of pregnancy, childbirth and the puerperium
CPT/HCPCS: 36415; 70450; 80048; 84484; 85025; 93005; 99284

== ENCOUNTER → 2023-06-22 13:16 | Outpatient (BNV) | payer OTHER, SELFPAY | PROVIDERS: Emergency Provider Emergency Medicine; Visit Provider Internal Medicine | DX: I49.9 Cardiac arrhythmia, unspecified (principal) | CPT/HCPCS: 93010 ==